=== PATIENT | male | born 1965 | race Caucasian/White ===

== ENCOUNTER → 2022-04-18 | Outpatient (CLI) | payer BC, SELFPAY ==
--- NOTE | 2022-04-18 13:52 | VDLE_ITS ---
Reason For Study: Thrombophlebitis RIGHT LEFT GSV is normal. CFV is compressible, spontaneous, phasic, CFV is compressible, spontaneous, phasic, competent, and demonstrates normal competent and demonstrates normal augmentation. augmentation. FV is compressible, spontaneous, phasic, competent and demonstrates normal augmentation. POP V is compressible, spontaneous, phasic, competent and demonstrates normal augmentation. T/P Trunk is compressible. PTV is compressible. RT PerV is compressible. Rt Varicose Veins of the proximal and mid thigh - Non compressible and dilated with echogenic filling noted. Procedure This is a venous duplex using B-mode, color flow and spectral Doppler. Exam performed in department. The exam was diagnostic. A preliminary report was called to patient's PCP John Rios and faxed to ordering [employer] Heath Salas. VL/Venous Duplex US, Unilateral Interpretation Summary There is no evidence of right lower extremity deep vein thrombosis. Right great saphenous vein appears patent and compressible segmentally. Superficial thrombophlebitis right proximal mid thigh varicose veins Normal flow patterns left common femoral vein Ordering Physician: HEATH SALAS Referring Physician: John Rios M.D. Performed By: Andre Henriquez RVT
== END | disposition home or self-care (01) ==
LOC: CVS 13:50
DX: I80.201 Phlebitis and thrombophlebitis of unspecified deep vessels of right lower extremity (principal)
CPT/HCPCS: 93971

== ENCOUNTER → 2022-08-14 | Outpatient (CLI) | payer BC, SELFPAY ==
--- NOTE | 2022-08-14 07:19 | CT_ITS ---
PROCEDURE: CT RIGHT KNEE WITHOUT CONTRAST REASON FOR EXAM: Male, 57 years old. Preoperative planning for the [employer] knee surgery. Knee pain. TECHNIQUE: Transaxial CT of the hip, knee and ankle were obtained. Coronal and sagittal reconstruction images of the knee were provided. Individualized dose optimization techniques were used for this CT. COMPARISON: None. FINDINGS: Standard protocol for the preoperative planning for the [employer] robotic knee surgery was performed. Mild arthrosis of the right hip, mild tricompartmental arthrosis of the right knee and mild arthrosis of the tibiotalar joint. CT/Extremity Lower without Contra IMPRESSION: Preoperative [employer] knee surgical CT evaluation with findings as described above. Electronically Signed: Isaias Arguello, at 13:28 EST ,
== END | disposition home or self-care (01) ==
PROVIDERS: PCP Internal Medicine; Referring Provider Specialist; Visit Provider Specialist
DX: M21.161 Varus deformity, not elsewhere classified, right knee (principal)
CPT/HCPCS: 73700

== ENCOUNTER → 2022-11-14 | Outpatient (CLI) | payer BC, SELFPAY ==
--- NOTE | 2022-11-14 10:04 | VDLE_ITS ---
Reason For Study: LEG PAIN RIGHT LEFT GSV is normal. CFV is compressible, spontaneous, phasic, CFV is compressible, spontaneous, phasic, competent, and demonstrates normal competent and demonstrates normal augmentation. augmentation. FV is compressible, spontaneous, phasic, competent and demonstrates normal augmentation. POP V is compressible, spontaneous, phasic, competent and demonstrates normal augmentation. T/P Trunk is compressible. PTV is compressible. RT PerV is compressible. Procedure This is a venous duplex using B-mode, color flow and spectral Doppler. Exam performed in department. The exam was diagnostic. A preliminary report was called and/or faxed to Dr. Stahl / Brnadi Jimenes. VL/Venous Duplex US, Unilateral Interpretation Summary Deep veins of the right lower extremity are patent and compressible segmentally . There is no evidence of right lower extremity deep vein thrombosis. The right great sapheno us vein appears patent and compressible segmentally. Ordering Physician: Lg Stahl Referring Physician: John Rios M.D. Performed By: Andre Henriquez RVT
== END | disposition home or self-care (01) ==
LOC: CVS 09:58
PROVIDERS: PCP Internal Medicine; Referring Provider Specialist; Visit Provider Specialist
DX: M79.661 Pain in right lower leg (principal); Z96.651 Presence of right artificial knee joint
CPT/HCPCS: 93971

== ENCOUNTER → 2023-06-04 | Outpatient (CLI) | payer BC, SELFPAY ==
--- NOTE | 2023-06-04 07:56 | CT_ITS ---
CT LEFT LOWER EXTREMITY WITH 3-D IMAGING CLINICAL INDICATION: Left knee varus deformity. Presurgical - [facility] protocol. TECHNIQUE: Axial CT images of the left lower extremity (including left hip, left knee, and left ankle) was performed without IV contrast material, as per [facility] protocol. Coronal and sagittal reformats were provided. RADIATION DOSAGE (If Supplied By Facility): CTDIvol = ( 18.76 ) mGy, DLP = ( 1270.02 ) mGycm COMPARISON: None. FINDINGS: Bones: There is small subchondral cyst formation in the superolateral aspect of the left acetabulum, compatible with mild degenerative arthrosis of the left hip joint. 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 There is tricompartment degenerative arthrosis of the left knee with joint space narrowing and marginal osteophyte formation, most severe in the medial femorotibial compartment. Normal left ankle. Osseous structures are intact without evidence of fracture or dislocation. No lytic or blastic osseous masses. Soft Tissues: . There is a small to moderate left knee joint effusion. The deep soft tissue structures are otherwise unremarkable. The superficial soft tissues are unremarkable without evidence of edema, hematoma, or foreign body. CT/Extremity Lower without Contra IMPRESSION: Tricompartment degenerative arthrosis of the left knee, most severe in the medial femorotibial compartment. No acute fracture. Electronically Signed: Hakan Singh MD at 8:15 EST ,
== END | disposition home or self-care (01) ==
LOC: CT 07:51
PROVIDERS: PCP Internal Medicine; Referring Provider Specialist; Visit Provider Specialist
DX: Z01.810 Encounter for preprocedural cardiovascular examination (principal); M21.162 Varus deformity, not elsewhere classified, left knee
CPT/HCPCS: 73700

== ENCOUNTER → 2023-07-18 | Outpatient (CLI) | payer BC, SELFPAY ==
--- OUTSIDE RECORDS SUMMARY | 2023-07-18 12:06 | XMS RPT_ITS | CCD ---
Author Name Unknown Address [address] [place] [address] Organization [facility] Care Team Providers Care Mandarin Tutor Name Role Phone John Sutton MD Primary Care Provider [phone] JOHN SUTTON Primary Care Unavailable JOHN SUTTON Attending Unavailable JOHN SUTTON Primary Care Unavailable JOHN SUTTON Referring Unavailable JOHN SUTTON Primary Care Unavailable JOHN SUTTON Referring Unavailable JOHN SUTTON Primary Care Unavailable JOHN SUTTON Attending Unavailable Medications Current Medications Medication Drug Class(es) Dates Sig (Normalized) Sig (Original) polyethylene glycol 3350 181549 mg / potassium chloride 2980 mg / sodium bicarbonate 6720 mg / sodium chloride 5840 mg / sodium sulfate 78012 mg powder for oral solution (2 sources) Osmotic Laxative Start: 01-04-2022 End: 01-04-2022 peg 3350-electrolytes (COLYTE) 240-22.72-6.72 -5.84 gram solution Indications: Special screening for malignant neoplasms, colon Take 4,000 mL by mouth one time only for 1 dose. 4000 mL 0 01/04/2022 01/04/2022 Active Completed/Discontinued Medications Medication Drug Class(es) Dates Sig (Normalized) Sig (Original) cholecalciferol 0.025 mg oral capsule (4 sources) Vitamin D Start: 08-15-2022 take 1 capsule by mouth once daily Cholecalciferol, Vitamin D3, 25 mcg (1,000 unit) cap Take 1 capsule by mouth once daily. 0 08/15/2022 Active Problems Problem Classification Problem Date Documented Date Episodic/Chronic Immunizations and screening for infectious disease (8 sources) Patient encounter status; Translations: [Encounter for screening for human immunodeficiency virus [HIV]] Episodic Osteoarthritis (12 sources) Bilateral arthritis of knees; Translations: [Bilateral primary osteoarthritis of knee] Onset: 01-04-2022 01-04-2022 Chronic Results Test Name Value Interpretation Reference Range Facil ity Vital Signs Date Time Vital Sign Value Performing Clinician Marian marie 05-11-2023 14:48-0400 Body temperature 98.29 [degF] John Sutton MD Work Phone: [facility] 05-11-2023 14:48-0400 Body weight 104.01 kg John Sutton MD Work Phone: [facility] 05-11-2023 14:48-0400 Diastolic blood pressure 84 mm[Hg] John Sutton MD Work Phone: [facility] 05-11-2023 14:48-0400 Heart rate 60 /min John Sutton MD Work Phone: [facility] 05-11-2023 14:48-0400 Respiratory rate 16 /min John Sutton MD Work Phone: [facility] 05-11-2023 14:48-0400 SaO2% (BldA) [Mass fraction] 96 % John Sutton MD Work Phone: [facility] 05-11-2023 14:48-0400 Systolic blood pressure 126 mm[Hg] John Sutton MD Work Phone: [facility] 08-15-2022 11:00-0500 Body temperature 97.3 [degF] John Sutton MD Work Phone: [facility] 08-15-2022 11:00-0500 Body weight 102.06 kg John Sutton MD Work Phone: [facility] 08-15-2022 11:00-0500 Diastolic blood pressure 80 mm[Hg] John Sutton MD Work Phone: [facility] 08-15-2022 11:00-0500 Heart rate 60 /min John Sutton MD Work Phone: [facility] 08-15-2022 11:00-0500 Systolic blood pressure 132 mm[Hg] John Sutton MD Work Phone: [facility] 03-03-2022 12:56-0400 Diastolic blood pressure 71 mm[Hg] Ale Jamison MD Work Phone: [facility] 03-03-2022 12:56-0400 Heart rate 57 /min Ale Jamison MD Work Phone: [facility] 03-03-2022 12:56-0400 Respiratory rate 16 /min Ale Jamison MD Work Phone: [facility] 03-03-2022 12:56-0400 SaO2% (BldA) [Mass fraction] 99 % Ale Jamison MD Work Phone: [facility] 03-03-2022 12:56-0400 Systolic blood pressure 122 mm[Hg] Ale Jamison MD Work Phone: [facility] 03-03-2022 11:40-0400 Body temperature 98.49 [degF] Ale Jamison MD Work Phone: [facility] 01-04-2022 10:30-0400 Body height 180.3 cm John Sutton MD Work Phone: [facility] 01-04-2022 10:30-0400 Body temperature 97.39 [degF] John Sutton MD Work Phone: [facility] 01-04-2022 10:30-0400 Body weight 94.8 kg John Sutton MD Work Phone: [facility] 01-04-2022 10:30-0400 Diastolic blood pressure 80 mm[Hg] John Sutton MD Work Phone: [facility] 01-04-2022 10:30-0400 Heart rate 68 /min John Sutton MD Work Phone: [facility] 01-04-2022 10:30-0400 Respiratory rate 12 /min John Sutton MD Work Phone: [facility] 01-04-2022 10:30-0400 Systolic blood pressure 128 mm[Hg] John Sutton MD Work Phone: [facility] Encounters Encounter Date Encounter Type Care Provider Facility Start: 05-11-2023 End: 05-11-2023 ambulatory JOHN SUTTON Facility:[facility] Start: 05-11-2023 End: 05-11-2023 Patient encounter procedure John Sutton MD Work Phone: Internal [facility] Procedures Date Procedure Procedure Detail Performing Clinician Start: 05-11-2023 Ecg routine ecg w/le ast 12 lds i&r only [facility] Provider Start: 05-11-2023 Nobl COVI D-19 VACCINE ( SEASON) AGE 12+ YR John Sutton MD Work Phone: Start: 03-03-2022 Colonoscopy flx dx w /collj spec when pfrmd John Sutton MD Work Phone: Start: 03-03-2022 Colonoscopy Ale Jamison MD Work Phone: Start: 01-04-[address] [facility] assessment Nurse Wstr Work Phone: Start: 01-04-2022 Lipid 1996 panel - S milena or Plasma John Sutton MD Work Phone: Start: 10-13-2020 Lipid panel [facility] Provid er Start: 04-25-2019 Lipid panel [facility] Provid er Start: 10-29-2013 Lipid panel [facility] Provid er Start: 11-14-2012 Lipid panel [facility] Provid er Start: 05-26-2012 Lipid panel [facility] Provid er Start: 05-16-2011 Lipid panel [facility] Provid er Plan of Treatment Date Care Activity Detail Author Start: 05-11-2033 Urine microalbumin profile DTaP,Tdap,Td Vaccine (3 - Td or Tdap) [facility] Start: 03-03-2027 Colonoscopy COLONOSCOPY [facility] Start: 03-03-2027 COLORECTAL CANCER SCREENING COLORECTAL CANCER SCREENING [facility] Start: 01-04-2027 Lipid 1996 panel - Serum or Plasma Lipid Screening [facility] Start: 01-04-2027 LIPID SCREEN LIPID SCREEN [facility] Start: 01-04-2027 PROSTATE CANCER SCREENING DISCUSSION PROSTATE CANCER SCREENING DISCUSSION [facility] Start: 10-13-2025 LIPID SCREEN LIPID SCREEN [facility] Start: 08-15-2025 DIABETES SCREEN DIABETES SCREEN [facility] Start: 08-15-2025 Diabetes Screening Diabetes Screening [facility] Start: 01-04-2025 DIABETES SCREEN DIABETES SCREEN [facility] Start: 03-09-2023 Influenza vaccination Influ[facility] (#[facility] Start: 03-03-2023 Colonoscopy COLONOSCOPY [facility] Start: 03-03-2023 COLORECTAL CANCER SCREENING COLORECTAL CANCER SCREENING [facility] Start: 02-11-2023 Urine microalbumin profile DTAP,TDAP,TD (2 - Td or Tdap) [facility] Start: 01-04-2023 Adult depression screening assessment DEPRESSION SCREENING [facility] Start: 03-09-2022 Influenza vaccination INFLUENZA (#1) [facility] Start: 01-04-2022 End: 03-06-2022 CBC panel - Blood by Automated count [facility] Work Phone: Immunizations Immunization Date Immunization Notes Care Provider Fa cili 05-11-2023 COVID-19 vaccine, ag e 12+ yr, season (Nobl) John Sutton MD Work Phone: [facility] Work Phone: 05-11-2023 tetanus toxoid, redu willy diphtheria toxoid, and acellular pertussis vaccine, adsorbed John Sutton MD Work Phone: [facility] Work Phone: 04-04-2022 influenza, injectabl e, quadrivalent, preservative free John Sutton MD Work Phone: [facility] Work Phone: 04-04-2022 influenza virus vaccine, unspecified formulation John Sutton MD Work Phone: [facility] 06-16-2021 COVID-19 vaccine, booster dose (MODERNA) Nurse Wstr Work Phone: [facility] Work Phone: 03-29-2021 influenza, injectabl e, quadrivalent, preservative free Nurse Wstr Work Phone: [facility] Work Phone: 10-21-2020 COVID-19 vaccine, fu ll dose (MODERNA) Nurse Wstr Work Phone: [facility] Work Phone: 09-23-2020 COVID-19 vaccine, fu ll dose (MODERNA) Nurse Wstr Work Phone: [facility] Work Phone: 03-24-2020 influenza, injectabl e, quadrivalent, preservative free Nurse Wstr Work Phone: [facility] Work Phone: 04-29-2018 Influenza, injectabl e, Madin Muna Canine Kidney, preservative free, quadrivalent Nurse Wstr Work Phone: [facility] Work Phone: 09-15-2015 hepatitis B vaccine, adult dosage Nurse Wstr Work Phone: [facility] Work Phone: 04-15-2015 influenza, injectabl e, quadrivalent, preservative free Nurse Wstr Work Phone: [facility] Work Phone: 04-13-2014 influenza, seasonal, injectable, preservative free Nurse Wstr Work Phone: [facility] Work Phone: 03-31-2013 influenza, seasonal, injectable, preservative free Nurse Wstr Work Phone: [facility] Work Phone: 03-17-2013 hepatitis B vaccine, adult dosage Nurse Wstr Work Phone: [facility] Work Phone: 02-11-2013 hepatitis B vaccine, adult dosage Nurse Wstr Work Phone: [facility] Work Phone: 02-11-2013 tetanus toxoid, redu willy diphtheria toxoid, and acellular pertussis vaccine, adsorbed Nurse Wstr Work Phone: [facility] Work Phone: 06-25-2008 tetanus and diphther ia toxoids, adsorbed, preservative free, for adult use (2 Lf of tetanus toxoid and 2 Lf of diphtheria toxoid) Nurse Wstr Work Phone: [facility] Work Phone: Payers Date Payer Category Payer Unknown ASHA TOUSSAINT PPO [id number] 2020-Present [phone] [address] [place] [id number] PPO [id number] 2020 Unknown ASHA CARLISLE ACCE SS PPO [id number] 2020-Present [phone] [address] [place] [address] PPO [id number] 2020 Unknown [id number] Social History Date Type Detail Facility Start: 06-06-2012 End: 03-03-2022 Tobacco smoking status NHIS Never smoked tobacco [facility] Start: 06-06-2012 Tobacco use and exposure User of smokeless tobacco [facility] End: 11-22-2007 History of tobacco use Chews Tobacco [facility] Start: 01-04-2022 End: 05-11-2023 Alcohol intake Current drinker of alcohol (finding) [facility] Start: 01-04-2022 End: 05-11-2023 Alcohol intake [facility] Work Phone: Start: 01-04-2022 History SDOH Alcohol Frequency 5 [facility] Start: 01-04-2022 History SDOH Alcohol Std Drinks 1 [facility] Start: 01-04-2022 History SDOH Alcohol Binge 2 [facility] Start: 01-04-2022 History SDOH Physica l Activity DPW 7 [facility] Start: 01-04-2022 History SDOH Physica l Activity MPS 12 [facility] Start: 1965 Sex Assigned At Not on file [facility] Start: 12-25-2021 End: 03-03-2022 Exposure to SARS-CoV-2 (event) Not sure [facility] Work Phone: Start: 03-03-2022 Tobacco use and exposure Constantin atkins smokeless tobacco user [facility] Start: 03-03-2022 History SDOH Alcohol Comment weekends [facility] Start: 01-04-2022 End: 05-11-2023 Alcohol Use Disorder Identification Test - Consumption [AUDIT-C] [facility] Work Phone: How often to you hav e a drink containing alcohol? 4 or more times a week [facility] Work Phone: How many standard dr inks containing alcohol do you have on a typical day? 1 or 2 [facility] Work Phone: How often do you hav e 6 or more drinks on 1 occasion? Less than monthly [facility] Work Phone: Adult Depression Scr eening Assessment 0 [facility] Work Phone: Clinical Notes 08-27-2008 to 05-11-2023 John Sutton MD - 05/11/2023 2:55 PM EDTTelephone Encounter - Nader Meza RN - 08/30/2022 8:31 AM ESTTelephone Encounter - Kera Vazquez LPN - 08/21/2022 4:27 PM ESTPatient Instructions Note Date & Type Note Facility 05-11-2023 Note HNO ID: [id number] Author: John Sutton MD Service: ? Author Type: Physician Type: Progress Notes Filed: 05/11/2023 3:58 PM Note Text: This note was created using NoteWriter. Subjective Consultation requested by Dr. Stahl for an opinion regarding preoperative examination. My final recommendations will be communicated back to the requesting physician by way of shared Medical record or facsimile to requesting physician. Miesha Morales is a 58 year old male. He was scheduled for left total knee, originally for June 21 but moved to July. He was in good health. We reviewed his past negative medical history, and his surgery 9 months ago was uncomplicated. Review of Systems Constitutional: Negative for fatigue, fever and unexpected weight change. Respiratory: Negative for shortness of breath. Cardiovascular: Negative for chest pain, palpitations and leg swelling. Gastrointestinal: Negative for diarrhea. Genitourinary: Negative for difficulty urinating and dysuria. Skin: Negative for rash and wound. Neurological: Negative. ACTIVE PROBLEM LIST Arthritis of Both Knees PAST MEDICAL HISTORY Diagnosis Date Arthritis of both knees 01/04/2022 Dr. Stahl COVID-19 06/2020 Diverticulosis of colon 03/03/2022 Essential hypertension 05/2008 Obesity due to excess calories without serious comorbidity 05/2008 PAST SURGICAL HISTORY Procedure Laterality Date ARTHROSCOPY KNEE DIAGNOSTIC W/WO SYNOVIAL BX SPX Right 1985 age 20, Right knee COLONOSCOPY 03/03/2022 repeat in 5 years MANIPULATION KNEE JOINT UNDER GENERAL ANESTHESIA Right 11/03/2022 TOTAL KNEE REPLACEMENT Right 08/31/2022 Social History Tobacco Use Smoking status: Never Smokeless tobacco: Former Types: Chew Quit date: 11/22/2007 Substance Use Topics Alcohol use: Yes Alcohol/week: 8.0 standard drinks of alcohol Types: 8 Cans of Beer (12oz) per week Comment: weekends Drug use: No ALLERGIES No Known Allergies Current Outpatient Medications Medication Sig Cholecalciferol, Vitamin D3, 25 mcg (1,000 unit) cap Take 1 capsule by mouth once daily. (Patient not taking: Reported on 05/11/2023) No current facility-administered medications for this visit. Objective BP 126/84 Pulse 60 Temp 36.8 ?C (98.3 ?F) Resp 16 Wt 104 kg (229 lb 4.8 oz) SpO2 96% BMI 31.98 kg/m? Physical Exam Constitutional: Appearance: Normal appearance. HENT: Head: Normocephalic. Eyes: General: No scleral icterus. Conjunctiva/sclera: Conjunctivae normal. Cardiovascular: Rate and Rhythm: Normal rate and regular rhythm. Heart sounds: No murmur heard. No gallop. Pulmonary: Breath sounds: Normal breath sounds. Abdominal: Palpations: Abdomen is soft. Tenderness: There is no abdominal tenderness. Hernia: No hernia is present. Musculoskeletal: General: No tenderness. Right lower leg: No edema. Left lower leg: No edema. Skin: Findings: No rash. Neurological: Mental Status: He is alert. Gait: Gait normal. EKG RESULTS: sinus bradycardia and otherwise normal. Assessment and Plan 1. Preoperative examination - ICD9: V72.84, ICD10: Z01.818 (primary diagnosis) Patient at below average risk for all NSQIP outcomes. Proceed. - ECG COMPLETE 2. Arthritis of both knees - ICD9: 716.96, ICD10: M17.0 Left total knee scheduled. 3. Need for COVID-19 vaccine - ICD9: V04.89, ICD10: Z23 - PFIZER-BIONTECH COVID-19 VACCINE ( SEASON) AGE 12+ YR 4. Need for vaccination - ICD9: V05.9, ICD10: Z23 - TDAP VACCINE, AGE 7+ YR (ADACEL, BOOSTRIX) John Sutton MD [facility] 05-11-2023 History of Presen t illness Narrative This note was created using [employer]. Subjective Consultation requested by Dr. Stahl for an opinion regarding preoperative examination. My final recommendations will be communicated back to the requesting physician by way of shared Medical record or facsimile to requesting physician. Miesha Morales is a 58 year old male. He was scheduled for left total knee, originally for June 21 but moved to July. He was in good health. We reviewed his past negative medical history, and his surgery 9 months ago was uncomplicated. Review of Systems Constitutional: Negative for fatigue, fever and unexpected weight change. Respiratory: Negative for shortness of breath. Cardiovascular: Negative for chest pain, palpitations and leg swelling. Gastrointestinal: Negative for diarrhea. Genitourinary: Negative for difficulty urinating and dysuria. Skin: Negative for rash and wound. Neurological: Negative. ACTIVE PROBLEM LIST Arthritis of Both Knees PAST MEDICAL HISTORY Diagnosis Date Arthritis of both knees 01/04/2022 Dr. Stahl COVID-19 06/2020 Diverticulosis of colon 03/03/2022 Essential hypertension 05/2008 Obesity due to excess calories without serious comorbidity 05/2008 PAST SURGICAL HISTORY Procedure Laterality Date ARTHROSCOPY KNEE DIAGNOSTIC W/WO SYNOVIAL BX SPX Right 1984 age 20, Right knee COLONOSCOPY 03/03/2022 repeat in 5 years MANIPULATION KNEE JOINT UNDER GENERAL ANESTHESIA Right 11/03/2022 TOTAL KNEE REPLACEMENT Right 08/31/2022 Social History Tobacco Use Smoking status: Never Smokeless tobacco: Former Types: Chew Quit date: 11/22/2007 Substance Use Topics Alcohol use: Yes Alcohol/week: 8.0 standard drinks of alcohol Types: 8 Cans of Beer (12oz) per week Comment: weekends Drug use: No ALLERGIES No Known Allergies Current Outpatient Medications Medication Sig Cholecalciferol, Vitamin D3, 25 mcg (1,000 unit) cap Take 1 capsule by mouth once daily. (Patient not taking: Reported on 05/11/2023) No current facility-administered medications for this visit. Objective BP 126/84 Pulse 60 Temp 36.8 C (98.3 F) Resp 16 Wt 104 kg (229 lb 4.8 oz) SpO2 96% BMI 31.98 kg/m Physical Exam Constitutional: Appearance: Normal appearance. HENT: Head: Normocephalic. Eyes: General: No scleral icterus. Conjunctiva/sclera: Conjunctivae normal. Cardiovascular: Rate and Rhythm: Normal rate and regular rhythm. Heart sounds: No murmur heard. No gallop. Pulmonary: Breath sounds: Normal breath sounds. Abdominal: Palpations: Abdomen is soft. Tenderness: There is no abdominal tenderness. Hernia: No hernia is present. Musculoskeletal: General: No tenderness. Right lower leg: No edema. Left lower leg: No edema. Skin: Findings: No rash. Neurological: Mental Status: He is alert. Gait: Gait normal. EKG RESULTS: sinus bradycardia and otherwise normal. Assessment and Plan 1. Preoperative examination - ICD9: V72.84, ICD10: Z01.818 (primary diagnosis) Patient at below average risk for all NSQIP outcomes. Proceed. - ECG COMPLETE 2. Arthritis of both knees - ICD9: 716.96, ICD10: M17.0 Left total knee scheduled. 3. Need for COVID-19 vaccine - ICD9: V04.89, ICD10: Z23 - PFIZER-BIONTECH COVID-19 VACCINE (2022- SEASON) AGE 12+ YR 4. Need for vaccination - ICD9: V05.9, ICD10: Z23 - TDAP VACCINE, AGE 7+ YR (ADACEL, BOOSTRIX) John Sutton MD documented in this encounter [facility] 08-30-2022 Miscellaneous Notes Faxed recent lab results to [facility], per request. documented in this encounter [facility] 08-21-2022 Miscellaneous Notes Results faxed to [facility]. Kera Vazquez LPN ----- Message from John Sutton MD sent at 08/20/2022 4:01 PM EST ----- Okay. Fax to [facility] as part of preoperative exam. documented in this encounter [facility] 08-15-2022 Note HNO ID: [id number] Author: John Sutton MD Service: ? Author Type: Physician Type: Progress Notes Filed: 09/10/2022 1:50 AM Note Text: This note was created using [employer]. Subjective Consultation requested by Dr. Stahl for an opinion regarding preoperative evaluation. My final recommendations will be communicated back to the requesting physician by way of facsimile. Miesha Morales is a 57 year old male, scheduled for right total knee 08/31/22. He had no history of heart disease, stroke, blood clots, bleeding tendencies or adverse effects from anesthesia. He was not on any prescription medications at this time. PAST MEDICAL HISTORY Diagnosis Date Arthritis of both knees 01/04/2022 Dr. Stahl COVID-19 06/2020 Diverticulosis of colon 03/03/2022 Essential hypertension 05/2008 Obesity due to excess calories without serious comorbidity 05/2008 PAST SURGICAL HISTORY Procedure Laterality Date ARTHROSCOPY KNEE DIAGNOSTIC W/WO SYNOVIAL BX SPX Right 1985 age 20, Right knee COLONOSCOPY 03/03/2022 repeat in 5 years FAMILY HISTORY Problem Relation Age of Onset Lymphoma Mother 80 Ischemic Heart Disease Mother Stroke Father Prostate Cancer Father Diabetes Sister insipidus No Known Problems Brother Social History Tobacco Use Smoking status: Never Smokeless tobacco: Former Types: Chew Quit date: 11/22/2007 Substance Use Topics Alcohol use: Yes Alcohol/week: 8.0 standard drinks Types: 8 Cans of Beer (12oz) per week Comment: weekends Drug use: No ALLERGIES No Known Allergies Current Outpatient Medications Medication Sig Cholecalciferol, Vitamin D3, 25 mcg (1,000 unit) cap Take 1 capsule by mouth once daily. No current facility-administered medications for this visit. Review of Systems Constitutional: Negative for chills, fatigue and fever. HENT: Negative. Respiratory: Negative for cough, chest tightness and shortness of breath. Cardiovascular: Negative for chest pain, palpitations and leg swelling. Gastrointestinal: Negative for constipation, diarrhea, nausea and vomiting. Genitourinary: Negative for difficulty urinating and dysuria. Neurological: Negative for dizziness and headaches. Psychiatric/Behavioral: Negative. Negative for dysphoric mood. Objective BP 132/80 (BP Position: Sitting) Pulse 60 Temp 36.3 ?C (97.3 ?F) Wt 102.1 kg (225 lb) BMI 31.38 kg/m? Physical Exam Constitutional: General: He is not in acute distress. Appearance: He is not ill-appearing. HENT: Head: Normocephalic. Eyes: Extraocular Movements: Extraocular movements intact. Neck: Vascular: No carotid bruit. Cardiovascular: Rate and Rhythm: Normal rate and regular rhythm. Heart sounds: No murmur heard. No gallop. Pulmonary: Effort: Pulmonary effort is normal. Breath sounds: Normal breath sounds. Abdominal: Palpations: Abdomen is soft. Tenderness: There is no abdominal tenderness. Musculoskeletal: Cervical back: No tenderness. Right lower leg: No edema. Left lower leg: No edema. Lymphadenopathy: Cervical: No cervical adenopathy. Neurological: General: No focal deficit present. Mental Status: He is alert. Gait: Gait normal. Psychiatric: Mood and Affect: Mood normal. Behavior: Behavior normal. EKG RESULTS: sinus bradycardia Labs (CBC, CMP) ordered. Assessment and Plan 1. Preoperative examination - ICD9: V72.84, ICD10: Z01.818 (primary diagnosis) - ECG COMPLETE - Proceed. No further testing needed. Standard DVT prophylaxis. - Below average risk for all NSQIP outcomes. 2. Arthritis of both knees - ICD9: 716.96, ICD10: M17.0 For right TKR. John Sutton MD September 10, 2022: Addendum: Depression screening completed. John Sutton MD [facility] 08-15-2022 History of Presen t illness Narrative This note was created using [facility]. Subjective Consultation requested by Dr. Stahl for an opinion regarding preoperative evaluation. My final recommendations will be communicated back to the requesting physician by way of facsimile. Miesha Morales is a 57 year old male, scheduled for right total knee 08/31/22. He had no history of heart disease, stroke, blood clots, bleeding tendencies or adverse effects from anesthesia. He was not on any prescription medications at this time. PAST MEDICAL HISTORY Diagnosis Date Arthritis of both knees 01/04/2022 Dr. Stahl COVID-19 06/2020 Diverticulosis of colon 03/03/2022 Essential hypertension 05/2008 Obesity due to excess calories without serious comorbidity 05/2008 PAST SURGICAL HISTORY Procedure Laterality Date ARTHROSCOPY KNEE DIAGNOSTIC W/WO SYNOVIAL BX SPX Right 1985 age 20, Right knee COLONOSCOPY 03/03/2022 repeat in 5 years FAMILY HISTORY Problem Relation Age of Onset Lymphoma Mother 80 Ischemic Heart Disease Mother Stroke Father Prostate Cancer Father Diabetes Sister insipidus No Known Problems Brother Social History Tobacco Use Smoking status: Never Smokeless tobacco: Former Types: Chew Quit date: 11/22/2007 Substance Use Topics Alcohol use: Yes Alcohol/week: 8.0 standard drinks Types: 8 Cans of Beer (12oz) per week Comment: weekends Drug use: No ALLERGIES No Known Allergies Current Outpatient Medications Medication Sig Cholecalciferol, Vitamin D3, 25 mcg (1,000 unit) cap Take 1 capsule by mouth once daily. No current facility-administered medications for this visit. Review of Systems Constitutional: Negative for chills, fatigue and fever. HENT: Negative. Respiratory: Negative for cough, chest tightness and shortness of breath. Cardiovascular: Negative for chest pain, palpitations and leg swelling. Gastrointestinal: Negative for constipation, diarrhea, nausea and vomiting. Genitourinary: Negative for difficulty urinating and dysuria. Neurological: Negative for dizziness and headaches. Psychiatric/Behavioral: Negative. Negative for dysphoric mood. Objective BP 132/80 (BP Position: Sitting) Pulse 60 Temp 36.3 C (97.3 F) Wt 102.1 kg (225 lb) BMI 31.38 kg/m Physical Exam Constitutional: General: He is not in acute distress. Appearance: He is not ill-appearing. HENT: Head: Normocephalic. Eyes: Extraocular Movements: Extraocular movements intact. Neck: Vascular: No carotid bruit. Cardiovascular: Rate and Rhythm: Normal rate and regular rhythm. Heart sounds: No murmur heard. No gallop. Pulmonary: Effort: Pulmonary effort is normal. Breath sounds: Normal breath sounds. Abdominal: Palpations: Abdomen is soft. Tenderness: There is no abdominal tenderness. Musculoskeletal: Cervical back: No tenderness. Right lower leg: No edema. Left lower leg: No edema. Lymphadenopathy: Cervical: No cervical adenopathy. Neurological: General: No focal deficit present. Mental Status: He is alert. Gait: Gait normal. Psychiatric: Mood and Affect: Mood normal. Behavior: Behavior normal. EKG RESULTS: sinus bradycardia Labs (CBC, CMP) ordered. Assessment and Plan 1. Preoperative examination - ICD9: V72.84, ICD10: Z01.818 (primary diagnosis) - ECG COMPLETE - Proceed. No further testing needed. Standard DVT prophylaxis. - Below average risk for all NSQIP outcomes. 2. Arthritis of both knees - ICD9: 716.96, ICD10: M17.0 For right TKR. John Sutton MD documented in this encounter [facility] 04-20-2022 Miscellaneous Notes Okay. Noted. Called and spoke with patient. Patient will follow up with Anastasia Cintron CNP for doppler results. Patient reports that he plans/hopes to keep Dr. Sutton as his PCP but he works at [employer] is on-site for urgent needs and it was convenient for him to be seen at the time for this. Deb Saunders RN 1) Please advise patient to call ordering provider. 2) Verify with patient who his primary care is and update [facility] accordingly. Andre Henriquez with [facility] calls to let provider know that Anastasia Cintron BAR MANAGER with [employer] ordered a stat doppler of right leg for soreness with redness and swelling. Findings are Negative for DVT. Positive for SVT of right side and varicose veins of paroxymal thighs of right side as well. Information to be forwarded to Anastasia Cintron but wanted provider to be aware as well since unable to reach and testing was ordered stat. Deb Saunders RN documented in this encounter [facility] 03-03-2022 Nurse Note Arrived in Phase II via cart left lateral position, eyes open, alert to self and procedure. Denies pain, nausea. Abdomen soft and non distended. Skin warm and dry, respirations regular and unlabored. Resting comfortably, but unable to fall asleep, will start snack immediately. documented in this encounter [facility] 03-03-2022 History and physical note UPDATED PROCEDURAL SEDATION HISTORY AND PHYSICAL EXAMINATION SERVICE DATE: 03/03/2022 SERVICE TIME: 11:49 PHYSICAL EXAM MUST BE COMPLETED ON ADMISSION PROCEDURE: colonoscopy, possible biopsies Procedure Indications: screening for colon cancer The History and Physical (completed in the past 30 days) has been reviewed and the patient has been examined. The contents accurately reflect the patient's condition with the following additions or revisions since the H&P was completed. ASA Class: ASA Class:: Patient with mild systemic disease Examination indicates no changes. AIRWAY: Airway Visualization of Uvula: Yes Mouth opening greater than 2 fingerbreadths: Yes Neck Full Range of Motion: Yes LUNGS: Lungs clear to auscultation CARDIAC: Regular rhythm,Regular rate Provisional Diagnosis/Treatment Plan: colonoscopy, possible biopsies SEDATION GOAL: Moderate This H&P can be found in the Electronic Medical Record . SIGNATURE: Ale Jamison MD PATIENT NAME: Miesha Morales DATE: March 03, 2022 TIME: 11:49 AM Source Note - Ale Jamison MD - 03/03/2022 12:00 PM EDT HISTORY AND PHYSICAL Miesha Morales 1965 REFERRING PHYSICIAN: John Sutton MD CHIEF COMPLAINT: No chief complaint on file. HPI: The patient is a 56 year old male presents for screening for colon cancer via colonoscopy The patient denies blood in stools, denies abdominal pain, and denies changes in bowel habits. The patient notes no colon cancer in immediate family. The patient has not had previous colonoscopy. PAST MEDICAL HISTORY Diagnosis Date Arthritis of both knees 01/04/2022 Dr. Stahl COVID-19 06/2020 Essential hypertension 05/2008 Obesity due to excess calories without serious comorbidity 05/2008 PAST SURGICAL HISTORY Procedure Laterality Date ARTHROSCOPY KNEE DIAGNOSTIC W/WO SYNOVIAL BX SPX Right 1985 age 20, Right knee MEDICATIONS: denies ALLERGIES: Patient has no known allergies. PERSONAL HISTORY: Social History Tobacco Use Smoking status: Never Smokeless tobacco: Current Types: Chew Last attempt to quit: 11/22/2007 Substance Use Topics Alcohol use: Yes Alcohol/week: 20.0 standard drinks Types: 8 Cans of Beer (12oz) per week Drug use: No FAMILY HISTORY: FAMILY HISTORY Problem Relation Age of Onset Lymphoma Mother 80 Ischemic Heart Disease Mother Stroke Father Prostate Cancer Father Diabetes Sister insipidus No Known Problems Brother REVIEW OF SYSTEMS: General - denies fevers HEENT - denies trauma/infections Resp - denies coughing up blood, denies breathing difficulties Cardiac - denies chest pain GI - denies abdominal pain, denies blood in stools, denies vomiting up of blood - denies blood in urine Endocrine - denies diabetes Psych - denies hallucinations Physical examination: Vital signs in chart, reviewed and noted by me General - WD/WN M in no apparent distress, alert and oriented Head - Normocephalic. EOM intact with sclera clear. Mouth with mucus membranes moist. Neck - supple with no jugular venous distention noted. Trachea is midline. Lungs - clear to auscultation. Normal breath sounds. No rales/rhonchi/wheezing noted. Heart - normal heart sounds. No rubs/clicks/murmurs noted. Regular rate. Abdomen - soft and benign. Extremities - no pitting edema noted. Skin - Normal skin integrity. Neurological - non focal Psych - calm and appropriate Impression: screening for colon cancer Discussion/Plan/Recommendations: I have discussed the above with the patient. I have offered colonoscopy , possible biopsies I have explained the procedure to the patient. I have counseled the patient as to the risks of the procedure, including but not limited to: infection, bleeding, injury to any intrabdominal organs such as liver/spleen, perforation of the GI tract, inability to complete the procedure, complications of anesthesia, etc. - the patient understands. The patient wishes to proceed. I have answered all questions to the patient s satisfaction and the patient has no further questions. Ale Jamison MD HISTORY AND PHYSICAL Miesha Morales 1965 REFERRING PHYSICIAN: John Sutton MD CHIEF COMPLAINT: No chief complaint on file. HPI: The patient is a 56 year old male presents for screening for colon cancer via colonoscopy The patient denies blood in stools, denies abdominal pain, and denies changes in bowel habits. The patient notes no colon cancer in immediate family. The patient has not had previous colonoscopy. PAST MEDICAL HISTORY Diagnosis Date Arthritis of both knees 01/04/2022 Dr. Stahl COVID-19 06/2020 Essential hypertension 05/2008 Obesity due to excess calories without serious comorbidity 05/2008 PAST SURGICAL HISTORY Procedure Laterality Date ARTHROSCOPY KNEE DIAGNOSTIC W/WO SYNOVIAL BX SPX Right 1985 age 20, Right knee MEDICATIONS: denies ALLERGIES: Patient has no known allergies. PERSONAL HISTORY: Social History Tobacco Use Smoking status: Never Smokeless tobacco: Current Types: Chew Last attempt to quit: 11/22/2007 Substance Use Topics Alcohol use: Yes Alcohol/week: 20.0 standard drinks Types: 8 Cans of Beer (12oz) per week Drug use: No FAMILY HISTORY: FAMILY HISTORY Problem Relation Age of Onset Lymphoma Mother 80 Ischemic Heart Disease Mother Stroke Father Prostate Cancer Father Diabetes Sister insipidus No Known Problems Brother REVIEW OF SYSTEMS: General - denies fevers HEENT - denies trauma/infections Resp - denies coughing up blood, denies breathing difficulties Cardiac - denies chest pain GI - denies abdominal pain, denies blood in stools, denies vomiting up of blood - denies blood in urine Endocrine - denies diabetes Psych - denies hallucinations Physical examination: Vital signs in chart, reviewed and noted by me General - WD/WN M in no apparent distress, alert and oriented Head - Normocephalic. EOM intact with sclera clear. Mouth with mucus membranes moist. Neck - supple with no jugular venous distention noted. Trachea is midline. Lungs - clear to auscultation. Normal breath sounds. No rales/rhonchi/wheezing noted. Heart - normal heart sounds. No rubs/clicks/murmurs noted. Regular rate. Abdomen - soft and benign. Extremities - no pitting edema noted. Skin - Normal skin integrity. Neurological - non focal Psych - calm and appropriate Impression: screening for colon cancer Discussion/Plan/Recommendations: I have discussed the above with the patient. I have offered colonoscopy , possible biopsies I have explained the procedure to the patient. I have counseled the patient as to the risks of the procedure, including but not limited to: infection, bleeding, injury to any intrabdominal organs such as liver/spleen, perforation of the GI tract, inability to complete the procedure, complications of anesthesia, etc. - the patient understands. The patient wishes to proceed. I have answered all questions to the patient s satisfaction and the patient has no further questions. Ale Jamison MD documented in this encounter [facility] 01-17-2022 Miscellaneous Notes Pt called and is notified of providers results. Pt voices understanding. Kalie Shaw RN Left message to call and speak to nurse for non-urgent results. Kera Vazquez LPN ----- Message from John Sutton MD sent at 01/16/2022 6:29 PM EDT ----- Labs are all within normal limits. documented in this encounter [facility] 01-04-2022 History of Presen t illness Narrative This note was created using [facility]. Subjective Patient presents with: Establish Care: last saw Dr. Jerald Costa here. Physical Miesha Morales is a 56 year old male. He was exercising almost daily and felt well. He sees Dr. Stahl periodically for knee joint injections. He had obesity and hypertension that resolved with lifestyle changes. The history is provided by the patient and medical records. Review of Systems HENT: Negative. Eyes: Negative. Respiratory: Negative. Cardiovascular: Negative. Gastrointestinal: Negative. Genitourinary: Negative. Musculoskeletal: Negative. Skin: Negative. Psychiatric/Behavioral: Negative. PAST MEDICAL HISTORY Diagnosis Date Arthritis of both knees 01/04/2022 Dr. Stahl COVID-19 06/2020 Essential hypertension 05/2008 Obesity due to excess calories without serious comorbidity 05/2008 PAST SURGICAL HISTORY Procedure Laterality Date ARTHROSCOPY KNEE DIAGNOSTIC W/WO SYNOVIAL BX SPX Right age 20 FAMILY HISTORY Problem Relation Age of Onset Lymphoma Mother 80 Ischemic Heart Disease Mother Stroke Father Prostate Cancer Father Diabetes Sister insipidus No Known Problems Brother Immunization History Administered Date(s) Administered COVID-19 vaccine, booster dose (MODERNA) 06/16/2021 COVID-19 vaccine, full dose (MODERNA) 09/23/2020 10/21/2020 10/24/2021 Hepatitis B Adult 02/11/2013 03/17/2013 09/15/2015 Influenza Seasonal Inj Quad Age 6 Mo-64 Yrs Pres Free 04/15/2015 03/24/2020 03/29/2021 Influenza Seasonal Inj Quadrivalent Age 4+ ccII4 and Pres Free 04/29/2018 Influenza Seasonal Trivalent Inj Pres Free 03/31/2013 04/13/2014 TD Adult 06/25/2008 Tdap (Age 7+) 02/11/2013 Social History Tobacco Use Smoking status: Never Smoker Smokeless tobacco: Current User Types: Chew Substance Use Topics Alcohol use: Yes Alcohol/week: 20.0 standard drinks Types: 8 Cans of Beer (12oz) per week Drug use: No ALLERGIES No Known Allergies Current Outpatient Medications Medication Sig peg 3350-electrolytes (COLYTE) 240-22.72-6.72 -5.84 gram solution Take 4,000 mL by mouth one time only for 1 dose. No current facility-administered medications for this visit. Objective BP 128/80 (BP Site: Left Arm, BP Position: Sitting, BP Cuff Size: Large Adult) Pulse 68 Temp 36.3 C (97.4 F) (Temporal Artery) Resp 12 Ht 180.3 cm (5' 11 ) Wt 94.8 kg (209 lb) BMI 29.15 kg/m Physical Exam Constitutional: Appearance: Normal appearance. HENT: Head: Normocephalic. Eyes: Extraocular Movements: Extraocular movements intact. Conjunctiva/sclera: Conjunctivae normal. Cardiovascular: Rate and Rhythm: Normal rate and regular rhythm. Heart sounds: No murmur heard. No gallop. Pulmonary: Effort: Pulmonary effort is normal. Breath sounds: Normal breath sounds. Abdominal: Palpations: Abdomen is soft. There is no mass. Tenderness: There is no abdominal tenderness. Musculoskeletal: General: No swelling or tenderness. Normal range of motion. Cervical back: Neck supple. Right knee: Deformity present. No swelling. No tenderness. Left knee: Deformity present. No swelling. No tenderness. Right lower leg: No edema. Left lower leg: No edema. Comments: Mild varus of both knees. Lymphadenopathy: Cervical: No cervical adenopathy. Skin: Findings: No rash. Neurological: General: No focal deficit present. Mental Status: He is alert. Gait: Gait normal. Psychiatric: Mood and Affect: Mood normal. Assessment and Plan 1. Routine medical exam - ICD9: V70.0, ICD10: Z00.00 (primary diagnosis) - Discussed need for and benefit of weight loss. BMI 29.15 kg/(m^2) - Colorectal cancer screening recommended - agrees to Colonoscopy - Risks/benefits of prostate cancer screening discussed. screening PSA ordered - Depression screening tool completed and reviewed with patient. Based on score and interview, patient is not at risk for depression and recommended no further intervention at this time. - Patient was counseled [id number] by myself (the billing provider) for the following immunizations and vaccine components, including side effects: Shingrix. Patient consents for immunization and understands risks and benefits. A VIS sheet on each immunization was given to the patient. - Glaucoma screening recommended. - CBC - COMP METABOLIC PANEL - LIPID PANEL BASIC 2. Special screening for malignant neoplasms, colon - ICD9: V76.51, ICD10: Z12.11 - COLONOSCOPY SCREENING - PEG 3350 240 GRAM-ELECTROLYTES 22.72 GRAM-6.72 G-5.84 G POWDR FOR SOLN 3. Arthritis of both knees - ICD9: 716.96, ICD10: M17.[address] Stahl. 4. Screening for prostate cancer - ICD9: V76.44, ICD10: Z12.5 - PSA/PROSTSPECAG SCRN 5. Screening for HIV without presence of risk factors - ICD9: V73.89, ICD10: Z11.4 - HIV 1 2 COMBO(AG/AB),WITH REFLEX TO DIFFERENTIATION 6. Encounter for hepatitis C screening test for low risk patient - ICD9: V73.89, ICD10: Z11.59 - HEP C AB IA W/CONF SCRN John Sutton MD TR OPEN ACCESS QUESTIONNAIRE 1. Are you currently having any new or unusual stomach/gastrointestinal issues at this time such as constipation, diarrhea, abdominal pain, rectal bleeding etc?No 2. Do you have any difficulty swallowing? No 3. Do you have any implanted devices such as a defibrillator, pacemaker, cardiac stents or deep brain stimulator? No 4. Do you take any Blood thinners such as Coumadin, Plavix, Xarelto, Eliquis, Brilinta or any other blood thinner? No 5. Do you have any new or past cardiac (heart) or pulmonary (lung) issues? No 6. Do you currently use any oxygen? No 7. Have you been hospitalized in the past 6 weeks? No 8. Have you had difficulty with anesthesia previously re: Difficult intubation? No Other difficulty or allergic reaction to anesthesia other than post op N/V? No 9. Are you on dialysis? No 10. Do you have any bleeding disorders such as hemophilia or Factor 5? No 11. Are you an Insulin Dependent Diabetic? No IF ANY OF THE TOP ELEVEN QUESTIONS ARE ANSWERED YES PLEASE SCHEDULE THE PATIENT FOR A CONSULT. advised 12. Is the patient's BMI 40 or greater? No:There is no height or weight on file to calculate BMI.. 13. Do you take any narcotics or anti-Anxiety medications? No 14. Do you use any illegal or recreational drugs including marijuana? No 15. Any alcohol use: YES: What type of alcohol, how much and how often do you drink? : 6-8 - 12 ounce beers weekly 16. Have you been diagnosed with chronic liver disease such as hepatitis or cirrhosis? No 17. Do you have a seizure disorder? No 18. Do you have ulcerative colitis or Crohn's disease? No 19. Are you or could you be ? No 20. Any other important health information we should be made aware of prior to your colonoscopy? No To be completed by LIP: Did patient have MAC anesthesia with a previous endoscopy procedure? No Patient appropriate for Open Access Colonoscopy: Yes: appropriate for Open Access Procedure Checklist: Prior to closing the encounter: Complete questionnaire: Yes Confirm Prep order has been Ordered/Pended: Yes. ? Patient's procedure could be delayed if not given the script for the prep. Please ensure the prep is escripted to pharmacy or printed. Instructions for the prep will print upon filing or pending this smartset. Please send all open access questionnaires to [facility] Sched Pool #[id number] documented in this encounter [facility] 01-04-2022 Instructions John Sutton MD - 01/04/2022 11:14 AM EDT Recombinant shingles vaccine (Shingrix) is recommended; 2 doses 2-6 months apart. Please read information, check with your insurance, and schedule vaccination at your local pharmacy. A prescription is not required. If you are certain you have coverage to receive this vaccine in the office, we can schedule this for you. FASTING BLOOD WORK TODAY. Health Information For Patients and the Community How to Prepare for Your Colonoscopy Using Golytely, Nulytely, Trilyte or Colyte Preparations IMPORTANT - Please Read These Instructions at Least 2 Weeks Before Your Colonoscopy Bailey Instructions: ?Your bowel must be empty so that your doctor can clearly view your colon. Follow all of the instructions in this handout EXACTLY as they are written. If you do NOT follow the directions for when to start drinking the bowel preparation (see next page), your colonoscopy WILL be cancelled. ?Do NOT eat any solid food the ENTIRE day before your colonoscopy. ?Buy your bowel preparation at least 5 days before your colonoscopy. ?Do NOT mix the solution until the day before your colonoscopy. Designated Sales Representative Graphic Art on the Day of Your Exam A responsible family member or friend MUST come with you to your colonoscopy and REMAIN in the endoscopy area until you are discharged! You are NOT ALLOWED to drive, take a taxi or bus, or leave the Endoscopy Center ALONE. If you do not have a responsible student truck driver (family member or friend) with you to take you home, your exam cannot be done with sedation and will be cancelled. Medications Some of the medicines you take may need to be stopped or adjusted before your colonoscopy. You MUST call the doctor who ordered any of the following medicines at least 2 weeks before your colonoscopy. ?Blood thinners -- such as Coumadin (warfarin), Plavix (clopidogrel), Ticlid (ticlopidine hydrochloride), Agrylin (anagrelide), Xarelto (Rivaroxaban), Pradaxa (Dabigatran), Eliquis (Apixaban), and Effient (Prasugrel). ?Insulin or diabetes pills. Please call the doctor that monitors your glucose levels. Your insulin dosage may need to be adjusted due to the diet restrictions required with this bowel preparation. (Please bring your diabetes medicines with you on the day of your procedure.) If you take aspirin, take it and ALL other medications prescribed by your doctor. On the day of your colonoscopy, take your medications with a sip of water. Revised 08/2016 1 Five (5) Days Before Your Colonoscopy ?Do NOT take medicines that stop diarrhea -- such as Imodium , Kaopectate , or Pepto Bismol . ?Do NOT take fiber supplements -- such as Metamucil , Citrucel , or Perdiem . ?Do NOT take products that contain iron -- such as multi-vitamins -- (the label lists what is in the products). ?Do NOT take vitamin E. Buy the prescription bowel preparation solution at your local pharmacy or [facility]. Three (3) Days Before Your Colonoscopy Do NOT eat high-fiber foods -- such as popcorn, beans, seeds (flax, sunflower, quinoa), multigrain bread, nuts, salad/vegetables, or fresh and dried fruit. One (1) Day Before Your Colonoscopy Only drink clear liquids the ENTIRE DAY before your colonoscopy. Do NOT eat any solid foods. Drink at least 8 ounces of clear liquids every hour after waking up. The clear liquids you can drink include: ?water, apple, or white grape juice; broth; coffee or tea (without milk or creamer); clear carbonated beverages such as kaya erika or lemon-fort bidwell soda; Gatorade or other sports drinks (not red); Bruno-Aid or other flavored drinks (not red). You may eat plain jello or other gelatins (not red) or popsicles (not red). Do NOT drink alcohol on the day before or the day of the procedure. 2 Revised 08/2016 When to Mix and Drink Your Bowel Prep Follow the instructions on the label. After mixing, place the solution in the refrigerator for a couple of hours before drinking. You may add the flavor packet that came with the bowel preparation. DO NOT add ice, sugar or any flavorings to the solution. Evening Before Your Colonoscopy ?Start drinking the bowel preparation at 6 PM the evening before your colonoscopy. Drink an 8-oz glass of bowel preparation every 10 minutes. You must finish drinking the solution by 9 PM the night before your scheduled procedure. ?You may continue to drink clear liquids only until midnight. Do NOT eat or drink ANYTHING after midnight the night before your procedure or your procedure may be cancelled. This is for your safety and will reduce the risk of having any food or liquid in your stomach move into your lungs (aspiration) during a procedure. If you take aspirin, take it and ALL other prescribed medicines with a sip of water on the day of your colonoscopy. Contact Information: If you are unable to keep your appointment or have any questions about the instructions, please call the facility where the procedure is being performed. Call between the hours of 8:00 AM and 5:00 PM. If you are calling after 5:00 PM, please call Nurse exploration geologist at [phone]. [facility] [address] [place] [id number] Index # [id number] Revised 08/2016 3 Colonoscopy Procedure Overview Please Read Prior to the Procedure What is a Colonoscopy A colonoscopy is an outpatient procedure in which the inside of the large intestine (colon and rectum) is examined. A colonoscopy is commonly used to evaluate gastrointestinal symptoms, such as rectal and intestinal bleeding, abdominal pain, or changes in bowel habits. Colonoscopies are also performed in individuals without symptoms to check for colorectal polyps or cancer. A screening colonoscopy is recommended for anyone 50 years of age and older, and for anyone with parents, siblings or children with a history of colorectal cancer or polyps. What Happens Before a Colonoscopy To have a successful colonoscopy, your bowel must be empty so that your physician can clearly view the colon. To do this, it is very important to read and follow all of the instructions given to you at least 2 weeks BEFORE your exam. If your bowel is not empty, your colonoscopy will not be successful and may have to be repeated. If you feel nauseated or vomit while taking the bowel preparation, wait 30 minutes before drinking more fluid and start with small sips of solution. Some activity (such as walking) or a few soda crackers may help decrease the nausea you are feeling. If the nausea persists, please contact nurse career consultant at [phone]. You may experience skin irritation around the anus due to the passage of liquid stools. To prevent and treat skin irritation, you should: ?Apply Vaseline or Desitin ointment to the skin around the anus before drinking the bowel preparation medications. These products can be purchased at any drugstore. ?Wipe the skin after each bowel movement with disposable wet wipes instead of toilet paper. These are found in the toilet paper area of the store. ?Sit in a bathtub filled with warm water for 10 to 15 minutes after you finish passing a stool; after soaking, blot the skin dry with a soft cloth, apply Vaseline or Desitin ointment to the anal area, and place a cotton ball just outside your anus to absorb leaking fluid. What Happens During a Colonoscopy During a colonoscopy, an experienced physician uses a colonoscope (a long, flexible instrument about 1/2 inch in diameter) to view the lining of the colon. The colonoscope is inserted into the rectum and advanced through the large intestine. If necessary during a colonoscopy, small amounts of tissue can be removed for analysis (a biopsy) and polyps can be identified and entirely removed. In many cases, a colonoscopy allows accurate diagnosis and treatment of colorectal problems without the need for a major operation. Revised 08/2016 5 ?You are asked to wear a hospital gown and an IV will be started. ?You are given a pain reliever and a sedative intravenously (in your vein). You will feel relaxed and somewhat drowsy. ?You will lie on your left side, with your knees drawn up towards your chest. ?A small amount of air is used to expand the colon so the physician can see the colon mathew. ?You may feel mild cramping during the procedure. Cramping can be reduced by taking slow, deep breaths. ?The colonoscope is slowly withdrawn while the lining of your bowel is carefully examined. ?The procedure lasts from 30 minutes to 1 hour. What Happens After a Colonoscopy ?You will stay in a recovery room for observation until you are ready for discharge. ?You may feel some cramping or a sensation of having gas, but this quickly passes. ?If sedation has been given, a responsible family member or friend must drive you home. ?Avoid alcohol, driving, and operating machinery for 24 hours following the procedure. ?Unless otherwise instructed, you may immediately return to your normal diet. We recommend you wait until the day after your procedure to resume normal activities. ?If polyps were removed or a biopsy was taken, the physician performing your colonoscopy will tell you when it is safe to resume taking your blood thinners. ?If a biopsy was taken or a polyp was removed, you may notice a little amount of rectal bleeding for 1 to 2 days after the procedure. If you have a large amount of rectal bleeding, high or persistent fevers, or severe abdominal pain within the next 2 weeks, please go to your local emergency room and call the physician who performed your exam. 6 Revised 08/2016 Copyright 5304-4501 [facility]. All rights reserved. Revised 08/2016 documented in this encounter [facility] documented as of this encounter (statuses as of 01/04/2022) [facility] History of Past illness Narrative* Problem Noted Date Resolved Date Cough 08/27/2008 01/04/2022 Overview: Miguel 2-: rec stopping Lisinopril 4-6 weeks, consider CXR, barium swallow, PFT Epistaxis 05/20/2008 01/04/2022 Overview: Had R nares cauterized with Miguel in 04-15: was using 2 advil a day at the time Unspecified sleep apnea 12/16/2007 01/05/20 Overview: Declined testing for sleep for wt loss as of 12-14: agreed 05-16 Not scheduled as of 07-17: not calling back Obesity, unspecified 12/16/2007 01/04/2022 Overview: TSH 1.8 in 12-14 Plans to meet with friend's who is a nozzleman as of 02-13: to e-mail about plan Contacted his brother in [place] about his activities as he is in good shape Down almost 25 pounds as of 06-15 Unspecified essential hypertension 12/16/2007 01/04/2022 Overview: Repeat 142/88 in 12-14: declined sleep testing for wt loss LDL 100, HDL 42, TG 137 in 12-14 Started Lisin/HCTZ 10/12.5 mg in 05-16: holding for cough as of 07-17 documented as of this encounter (statuses as of 01/04/2022) [facility] History of Past illness Narrative* Problem Noted Date Resolved Date Cough 08/27/2008 01/04/2022 Overview: Miguel 2-09: rec stopping Lisinopril 4-6 weeks, consider CXR, barium swallow, PFT Epistaxis 05/20/2008 01/04/2022 Overview: Had R nares cauterized with Miguel in 04-15: was using 2 advil a day at the time Unspecified sleep apnea 12/16/2007 01/05/20 22 Overview: Declined testing for sleep for wt loss as of 12-14: agreed 05-16 Not scheduled as of 07-17: not calling back Obesity, unspecified 12/16/2007 01/04/2022 Overview: TSH 1.8 in 12-14 Plans to meet with friend's who is a nozzleman as of 02-13: to e-mail about plan Contacted his brother in [place] about his activities as he is in good shape Down almost 25 pounds as of 06-15 Unspecified essential hypertension 12/16/2007 01/04/2022 Overview: Repeat 142/88 in 12-14: declined sleep testing for wt loss LDL 100, HDL 42, TG 137 in 12-14 Started Lisin/HCTZ 1012.5 mg in 05-16: holding for cough as of 07-17 documented as of this encounter (statuses as of 01/17/2022) [facility] History of Past illness Narrative* Problem Noted Date Resolved Date Cough 08/27/2008 01/04/2022 Overview: Miguel 08-17: rec stopping Lisinopril 4-6 weeks, consider CXR, barium swallow, PFT Epistaxis 05/20/2008 01/04/2022 Overview: Had R nares cauterized with Miguel in 04-15: was using 2 advil a day at the time Unspecified sleep apnea 12/16/2007 01/05/20 22 Overview: Declined testing for sleep for wt loss as of 12-14: agreed 05-16 Not scheduled as of 07-17: not calling back Obesity, unspecified 12/16/2007 01/04/2022 Overview: TSH 1.8 in 12-14 Plans to meet with friend's who is a nozzleman as of 02-13: to e-mail about plan Contacted his brother in [place] about his activities as he is in good shape Down almost 25 pounds as of 06-15 Unspecified essential hypertension 12/16/2007 01/04/2022 Overview: Repeat 142/88 in 12-14: declined sleep testing for wt loss LDL 100, HDL 42, TG 137 in 12-14 Started Lisin/HCTZ 10/12.5 mg in 05-16: holding for cough as of 07-17 documented as of this encounter (statuses as of 03/04/2022) [facility] History of Past illness Narrative* Problem Noted Date Resolved Date Cough 08/27/2008 01/04/2022 Overview: Miguel 08-17: rec stopping Lisinopril 4-6 weeks, consider CXR, barium swallow, PFT Epistaxis 05/20/2008 01/04/2022 Overview: Had R nares cauterized with Miguel in 04-15: was using 2 advil a day at the time Unspecified sleep apnea 12/16/2007 01/05/20 Overview: Declined testing for sleep for wt loss as of 12-14: agreed 05-16 Not scheduled as of 07-17: not calling back Obesity, unspecified 12/16/2007 01/04/2022 Overview: TSH 1.8 in 12-14 Plans to meet with friend's who is a nozzleman as of 02-13: to e-mail about plan Contacted his brother in [place] about his activities as he is in good shape Down almost 25 pounds as of 06-15 Unspecified essential hypertension 12/16/2007 01/04/2022 Overview: Repeat 142/88 in 12-14: declined sleep testing for wt loss LDL 100, HDL 42, TG 137 in 12-14 Started Lisin/HCTZ 10/12.5 mg in 05-16: holding for cough as of 07-17 documented as of this encounter (statuses as of 04/20/2022) [facility] History of Past illness Narrative* Problem Noted Date Resolved Date Cough 08/27/2008 01/04/2022 Overview: Miguel 2-: rec stopping Lisinopril 4-6 weeks, consider CXR, barium swallow, PFT Epistaxis 05/20/2008 01/04/2022 Overview: Had R nares cauterized with Miguel in 04-15: was using 2 advil a day at the time Unspecified sleep apnea 12/16/2007 01/05/20 Overview: Declined testing for sleep for wt loss as of 12-14: agreed 05-16 Not scheduled as of 07-17: not calling back Obesity, unspecified 12/16/2007 01/04/2022 Overview: TSH 1.8 in 12-14 Plans to meet with friend's who is a nozzleman as of 02-13: to e-mail about plan Contacted his brother in [place] about his activities as he is in good shape Down almost 25 pounds as of 06-15 Unspecified essential hypertension 12/16/2007 01/04/2022 Overview: Repeat 142/88 in 12-14: declined sleep testing for wt loss LDL 100, HDL 42, TG 137 in 12-14 Started Lisin/HCTZ 10/12.5 mg in 05-16: holding for cough as of 07-17 documented as of this encounter (statuses as of 08/15/2022) [facility] History of Past illness Narrative* Problem Noted Date Resolved Date Cough 08/27/2008 01/04/2022 Overview: Miguel 2: rec stopping Lisinopril 4-6 weeks, consider CXR, barium swallow, PFT Epistaxis 05/20/2008 01/04/2022 Overview: Had R nares cauterized with Miguel in 04-15: was using 2 advil a day at the time Unspecified sleep apnea 12/16/2007 01/05/20 22 Overview: Declined testing for sleep for wt loss as of 12-14: agreed 05-16 Not scheduled as of 07-17: not calling back Obesity, unspecified 12/16/2007 01/04/2022 Overview: TSH 1.8 in 12-14 Plans to meet with friend's who is a nozzleman as of 02-13: to e-mail about plan Contacted his brother in [place] about his activities as he is in good shape Down almost 25 pounds as of 06-15 Unspecified essential hypertension 12/16/2007 01/04/2022 Overview: Repeat 142/88 in 12-14: declined sleep testing for wt loss LDL 100, HDL 42, TG 137 in 12-14 Started Lisin/HCTZ 10/12.5 mg in 05-16: holding for cough as of 07-17 documented as of this encounter (statuses as of 08/22/2022) [facility] History of Past illness Narrative* Problem Noted Date Resolved Date Cough 08/27/2008 01/04/2022 Overview: Miguel 08-17: rec stopping Lisinopril 4-6 weeks, consider CXR, barium swallow, PFT Epistaxis 05/20/2008 01/04/2022 Overview: Had R nares cauterized with Miguel in 04-15: was using 2 advil a day at the time Unspecified sleep apnea 12/16/2007 01/05/20 22 Overview: Declined testing for sleep for wt loss as of 12-14: agreed 05-16 Not scheduled as of 07-17: not calling back Obesity, unspecified 12/16/2007 01/04/2022 Overview: TSH 1.8 in 12-14 Plans to meet with friend's who is a nozzleman as of 02-13: to e-mail about plan Contacted his brother in [place] about his activities as he is in good shape Down almost 25 pounds as of 06-15 Unspecified essential hypertension 12/16/2007 01/04/2022 Overview: Repeat 142/88 in 12-14: declined sleep testing for wt loss LDL 100, HDL 42, TG 137 in 12-14 Started Lisin/HCTZ 10/12.5 mg in 05-16: holding for cough as of 07-17 documented as of this encounter (statuses as of 08/30/2022) [facility] History of Past illness Narrative* Problem Noted Date Diagnosed Date Resolved Date Cough 08/27/2008 01/04/2022 Overview: Miguel 08-17: rec stopping Lisinopril 4-6 weeks, consider CXR, barium swallow, PFT Epistaxis 05/20/2008 01/04/2022 Overview: Had R radha cauterized with Miguel in 04-15: was using 2 advil a day at the time Unspecified sleep apnea 12/16/200712/08 Overview: Declined testing for sleep for wt loss as of 12-14: agreed 05-16 Not scheduled as of 07-17: not calling back Obesity, unspecified 12/16/2007 022 Overview: TSH 1.8 in 12-14 Plans to meet with friend's who is a nozzleman as of 02-13: to e-mail about plan Contacted his brother in [place] about his activities as he is in good shape Down almost 25 pounds as of 06-15 Unspecified essential hypertension 12/16/2007 01/04/2022 Overview: Repeat 142/88 in 12-14: declined sleep testing for wt loss LDL 100, HDL 42, TG 137 in 12-14 Started Lisin/HCTZ 10/12.5 mg in 05-16: holding for cough as of 07-17 documented as of this encounter (statuses as of 05/12/2023) [facility] note* Diagnosis Routine medical exam- Primary Routine general medical examination at a health care facility Special screening for malignant neoplasms, colon Arthritis of both knees Unspecified arthropathy, lower leg Screening for prostate cancer Special screening for malignant neoplasm of prostate Screening for HIV without presence of risk factors Special screening examination for other specified viral diseases Encounter for hepatitis C screening test for low risk patient documented in this encounter [facility] note* Diagnosis Screening for colon cancer- Primary Special screening for malignant neoplasms, colon Special screening for malignant neoplasms, colon documented in this encounter [facility] note* Diagnosis Preoperative examination- Primary Preoperative examination, unspecified Arthritis of both knees Unspecified arthropathy, lower leg documented in this encounter [facility] note* Diagnosis Preoperative examination- Primary Preoperative examination, unspecified Arthritis of both knees Unspecified arthropathy, lower leg Need for COVID-19 vaccine Need for vaccination Need for prophylactic vaccination and inoculation against unspecified single disease documented in this encounter [facility] for referral (narrative)* Outpatient Procedure (Routine) - Pending Review Specialty Diagnoses / Procedures Referred By George alarcon Referred To Contact [facility] Diagnoses Special screening for malignant neoplasms, colon Procedures COLONOSCOPY SCREENING COLONOSCOPY FLX DX W/COLLJ SPEC WHEN John Muniz MD [address] [place] [address] [facility] [place] [address] Referral ID Status Reason Start Date Expiration Date Visits Requested Visits Authorized [id number] Pending Review Auto-Generat ed Referral 01/04/2022 01/04/2023 1 1 [facility] for referral (narrative)* Outpatient Procedure (Routine) - Closed Specialty Diagnoses / Procedures Referred By George alarcon Referred To Contact [facility] Diagnoses Special screening for malignant neoplasms, colon Procedures COLONOSCOPY SCREENING COLONOSCOPY FLX DX W/COLLJ SPEC WHEN John Muniz MD [address] [place] [address] [facility] [place] [address] [place] [address] Referral ID Status Reason Start Date Expiration Date V isits Requested Visits Authorized [id number] Closed Auto-Generate d Referral 02/01/2022 02/01/2023 1 1 [facility] for referral (narrative)* Outpatient Procedure (Routine) - Closed Specialty Diagnoses / Procedures Referred By Contac t Referred To Contact [facility] [place] Diagnoses Preoperative examination Procedures ECG COMPLETE ECG ROUTINE ECG W/LEAST 12 LDS W/I&R John Sutton MD [address] [place] [address] [facility] [address] [address] Referral ID Status Reason Start Date Expiration Date V isits Requested Visits Authorized [id number] Closed Auto-Generate d Referral 08/15/2022 08/15/2023 1 1 [facility] for referral (narrative)* Outpatient Procedure (Routine) - Pending Review Specialty Diagnoses / Procedures Referred By Contivan t Referred To Contact [facility] Diagnoses Preoperative examination Procedures ECG COMPLETE ECG ROUTINE ECG W/LEAST 12 LDS W/I&R John Sutton MD [address] [place] [address] [address] Referral ID Status Reason Start Date Expiration Date Visits Requested Visits Authorized [id number] Pending Review Auto-Generat ed Referral 05/11/2023 05/10/2024 1 1 [facility] for visit Narrative* Outpatient Procedure (Routine) - Closed Specialty Diagnoses / Procedures Referred By Contac t Referred To Contact [facility] Diagnoses Special screening for malignant neoplasms, colon Procedures COLONOSCOPY SCREENING COLONOSCOPY FLX DX W/COLLJ SPEC WHEN John Muniz MD [address] [place] [address] [facility] [place] [address] [place], [place] [address], [place] [address] Referral ID Status Reason Start Date Expiration Date V isits Requested Visits Authorized [id number] Closed Auto-Generate d Referral 02/01/2022 02/01/2023 1 1 [facility] Medications Administered Section Inactive Administered Medications - up to 3 most recent administrations Medication Order MAR Action Action Date Dose Rate Site diphenhydrAMINE 12.5-50 mg injection (BENADRYL) 12.5-50 mg, INTRAVENOUS, DIRECTED, Starting on Sun03/03/22 at 1230, Until Sun03/03/22 at 1629, DOSING DIRECTED BY PHYSICIAN FOR PROCEDURAL SEDATION ONLY, Intraprocedure Given 03/03/2022 11:58 AM EDT 50 mg fentaNYL 50 mcg/mL 25-100 mcg injection (SUBLIMAZE) 25-100 mcg, INTRAVENOUS, DIRECTED, Starting on Sun03/03/22 at 1230, Until Sun03/03/22 at 1629, DOSING DIRECTED BY PHYSICIAN FOR PROCEDURAL SEDATION ONLY, Intraprocedure Given 03/03/2022 12:07 PM EDT 50 mcg Summary Purpose Family History No Family History Records Found Advance Directives No Advanced Directives Records Found Additional Source Comments Source Comments (unrecognize d section and content) In the event this informatio n is protected by the Federal Confidentiality of Alcohol and Drug Abuse Patient Records regulations: The Federal rules restrict any use of the information to criminally investigate or prosecute any alcohol or drug abuse patient.[facility] the event this information is protected by the Federal Confidentiality of Alcohol and Drug Abuse Patient Records regulations: The Federal rules restrict any use of the information to criminally investigate or prosecute any alcohol or drug abuse patient.[facility] the event this information is protected by the Federal Confidentiality of Alcohol and Drug Abuse Patient Records regulations: The Federal rules restrict any use of the information to criminally investigate or prosecute any alcohol or drug abuse patient.[facility] the event this information is protected by the Federal Confidentiality of Alcohol and Drug Abuse Patient Records regulations: The Federal rules restrict any use of the information to criminally investigate or prosecute any alcohol or drug abuse patient.[facility] the event this information is protected by the Federal Confidentiality of Alcohol and Drug Abuse Patient Records regulations: The Federal rules restrict any use of the information to criminally investigate or prosecute any alcohol or drug abuse patient.[facility] the event this information is protected by the Federal Confidentiality of Alcohol and Drug Abuse Patient Records regulations: The Federal rules restrict any use of the information to criminally investigate or prosecute any alcohol or drug abuse patient.[facility] the event this information is protected by the Federal Confidentiality of Alcohol and Drug Abuse Patient Records regulations: The Federal rules restrict any use of the information to criminally investigate or prosecute any alcohol or drug abuse patient.[facility] the event this information is protected by the Federal Confidentiality of Alcohol and Drug Abuse Patient Records regulations: The Federal rules restrict any use of the information to criminally investigate or prosecute any alcohol or drug abuse patient.[facility] the event this information is protected by the Federal Confidentiality of Alcohol and Drug Abuse Patient Records regulations: The Federal rules restrict any use of the information to criminally investigate or prosecute any alcohol or drug abuse patient.[facility] Care Teams (unrecognized sec tion and content) Mandarin Tutor Relationship Specialty Start Date End Date John Sutton MD [address] [place], [place] [id number] PCP - General Internal Medicine 01/04/22 Mandarin Tutor Relationship Specialty Start Date End Date John Sutton MD [address] [place] [address] PCP - General Internal Medicine 01/04/22 Mandarin Tutor Relationship Specialty Start Date End Date John Sutton MD [address] [place] [address] PCP - General Internal Medicine 01/04/22 Mandarin Tutor Relationship Specialty Start Date End Date John Sutton MD [address] [place] [address] PCP - General Internal Medicine 01/04/22 Mandarin Tutor Relationship Specialty Start Date End Date John Sutton MD [address] [place] [address] PCP - General Internal Medicine 01/04/22 Mandarin Tutor Relationship Specialty Start Date End Date John Sutton MD [address] [place] [address] PCP - General Internal Medicine 01/04/22 Mandarin Tutor Relationship Specialty Start Date End Date John Sutton MD [address] [place] [address] PCP - General Internal Medicine 01/04/22 Reason for Visit (unrecogniz ed section and content) Reason Comments Results Reason Comments Patient Update Reason Comments Pre-Op Exam Reason Comments Faxed results Reason Comments Pre-Op Exam Exam for pre-op tam al, Left knee replacement scheduled 07/19/23 (unrecognized sect ion and content) No Status Records Found INFORMATION SOURCE (unrecogn ized section and content) FOR RECORDS PERTAINING TO PATIENTS WHO ARE OR HAVE BEEN ENROLLED IN A CHEMICAL DEPENDENCY/SUBSTANCEABUSE PROGRAM, SOME INFORMATION MAY BE OMITTED. This clinical summary was aggregated from multiple sources. Caution should be exercised in using it in the provision of clinical care. This summary normalizes information from multiple sources, and as a consequence, information in this document may materially change the coding, format and clinical context of patient data. In addition, data may be omitted in some cases. CLINICAL DECISIONS SHOULD BE BASED ON THE PRIMARY CLINICAL RECORDS. [facility]. provides no warranty or guarantee of the accuracy or completeness of information in this document.
[2023-07-18 12:41] LABS: Absolute Lymphocyte Count 1.71 X10^3/uL (0.83-4.51); Absolute Neutrophil Count 4.5 X10^3/uL (2.0-7.7); Basophil# 0.03 X10^3/uL; Basophil% 0.4 % (0-1); Eosinophil# 0.04 X10^3/uL; Eosinophils% 0.6 % (0-5); Hematocrit 42.4 % (40-54); Hemoglobin 14.1 g/dL (13.0-16.5); Lymphocyte # 1.71 X10^3/ul (0.83-4.51); Lymphocyte % 24.5 % (19-41); Mean Corp Hgb Conc 33.3 g/dL (32-36); Mean Corpuscular Hgb 29.3 pg (27.0-32.0); Mean Corpuscular Volume 88.1 fL (80-94); Mean Platelet Vol. 10.4 fl (6.2-12.0); Monocyte# 0.67 X10^3/uL; Monocyte% 9.6 % (0-10); NRBC Flagged by Analyzer 0 % (0-5); Neutrophil % 64.6 % (47-70); Platelet Count 243 K/mm3 (150-450); RBC Distribution Width CV 13.1 % (11.6-14.6); RBC Distribution Width SD 42.3 fl (35.1-43.9); Red Blood Count 4.81 M/mm3 (4.6-6.2)
[2023-07-18 13:29] LABS: Albumin, Serum 3.7 g/dL (3.2-5.0); Anion Gap 8 (5-15); BUN 19 mg/dL (7-18); BUN/Creat Ratio 15.6 RATIO (10-20); Calcium,Total 9.2 mg/dL (8.5-10.1); Chloride 111 mmol/L (98-107); Creatinine, Serum 1.22 mg/dL (0.70-1.30); EST Glomerular Filtration Rate 65 mL/min (>60); Est Glom Filt Rate - Afr Amer 79 mL/min (>60); Glucose 92 mg/dL (74-106); Potassium 4.2 mmol/L (3.5-5.1); Sodium Level 141 mmol/L (136-145)
== END | disposition home or self-care (01) ==
PROVIDERS: PCP Internal Medicine; Referring Provider Specialist; Visit Provider Specialist
DX: Z01.812 Encounter for preprocedural laboratory examination (principal); M17.12 Unilateral primary osteoarthritis, left knee; M21.162 Varus deformity, not elsewhere classified, left knee
CPT/HCPCS: 36415; 80048; 82040; 85025

== ENCOUNTER 2023-12-24 20:32 | Observation (INO) | payer BC, SELFPAY ==
[2023-12-24 20:32] VITALS: BP 142/84; PULSE 124; RESP 18; TEMP 36.6; O2SAT 97; BMI 31.4
--- NOTE | 2023-12-24 20:36 | EKG12_ITS ---
Test Reason : CP Blood Pressure : / mmHG Vent. Rate : 098 BPM Atrial Rate : 220 BPM P-R Int : 000 ms QRS Dur : 078 ms QT Int : 324 ms P-R-T Axes : 074 029 057 degrees QTc Int : 413 ms Normal sinus rhythm with PAC's Nonspecific ST abnormality Abnormal ECG Confirmed by TIFF MONACO, CANDELARIA ([id number]), video effects editor AVANI WATTERS ([id number]) on 12/25/2023 11:28:12 AM Referred By: Confirmed By:CANDELARIA MATTHEW MD
--- NOTE | 2023-12-24 20:50 | RAD_ITS ---
STUDY: X-RAY CHEST REASON FOR EXAM: Male, 58 years old. chest pain TECHNIQUE: AP portable COMPARISON: None. FINDINGS: There is less than optimal inspiratory effort however the lungs are clear. There is no demonstrated pleural abnormality. Normal size heart. Normal mediastinum and alban. Normal visualized pulmonary arteries. Normal visualized aortic arch and descending thoracic aorta. Dorsal spine demonstrates mild spondylosis. Normal visualized ribs, clavicles, and shoulders. There is no demonstrated abnormality of the visualized soft tissue structures of the upper abdomen. RAD/Chest 1 View (Portable) IMPRESSION: Diminished inspiratory effort. No acute disease Electronically Signed: Demetrio Fernandez MD at 21:29 EDT ,
[2023-12-24 20:59] LABS: Absolute Lymphocyte Count 1.51 X10^3/uL (0.83-4.51); Absolute Neutrophil Count 8.2 X10^3/uL (2.0-7.7); Basophil# 0.03 X10^3/uL; Basophil% 0.3 % (0-1); Eosinophil# 0.02 X10^3/uL; Eosinophils% 0.2 % (0-5); Hematocrit 43.6 % (40-54); Hemoglobin 13.7 g/dL (13.0-16.5); Lymphocyte # 1.51 X10^3/ul (0.83-4.51); Lymphocyte % 13.1 % (19-41); Mean Corp Hgb Conc 31.4 g/dL (32-36); Mean Corpuscular Hgb 28.5 pg (27.0-32.0); Mean Corpuscular Volume 90.8 fL (80-94); Mean Platelet Vol. 10.3 fl (6.2-12.0); Monocyte# 1.72 X10^3/uL; Monocyte% 14.9 % (0-10); NRBC Flagged by Analyzer 0 % (0-5); Neutrophil # 8.24 X10^3/uL (2.7-7.7); Neutrophil % 71.3 % (47-70); POSITIVE DIFFERENTIAL YES; Platelet Count 238 K/mm3 (150-450); RBC Distribution Width CV 13.3 % (11.6-14.6); RBC Distribution Width SD 44.6 fl (35.1-43.9); White Blood Count 11.5 K/mm3 (4.4-11.0)
[2023-12-24 21:00] LABS: Differential Indicated SCAN CRITERIA MET
[2023-12-24 21:21] LABS: Anion Gap 6 (5-15); BUN 12 mg/dL (7-18); BUN/Creat Ratio 10.6 RATIO (10-20); Chloride 105 mmol/L (98-107); Creatinine, Serum 1.13 mg/dL (0.70-1.30); EST Glomerular Filtration Rate 71 mL/min (>60); Est Glom Filt Rate - Afr Amer 86 mL/min (>60); Estimated Creatinine Clearance 91.41 ml/min; Glucose 138 mg/dL (74-106); Potassium 3.8 mmol/L (3.5-5.1); Sodium Level 138 mmol/L (136-145); Troponin-I HS (w/2H Reflex) 3 pg/mL (3.0-78.0)
[2023-12-24 21:32] VITALS: BP 141/71; PULSE 106; RESP 25; O2SAT 97
[2023-12-24 21:39] LABS: Differential Comment SCANNED
--- NOTE | 2023-12-24 21:49 | EKG12_ITS ---
Test Reason : REPEAT Blood Pressure : / mmHG Vent. Rate : 107 BPM Atrial Rate : 000 BPM P-R Int : 000 ms QRS Dur : 074 ms QT Int : 336 ms P-R-T Axes : 000 027 040 degrees QTc Int : 448 ms Atrial fibrillation with rapid ventricular response Abnormal ECG Confirmed by TIFF MONACO, CANDELARIA ([id number]), supervising editor trailer AVANI WATTERS ([id number]) on 12/25/2023 11:29:14 AM Referred By: Confirmed By:CANDELARIA MATTHEW MD
--- NOTE | 2023-12-24 21:54 | CT_ITS ---
EXAM: CT ANGIOGRAPHY CHEST WITHOUT AND WITH INTRAVENOUS CONTRAST CLINICAL INDICATION: pulmonary embolism TECHNIQUE: Helically acquired angiography images were obtained of the chest without and with intravenous contrast. This CT exam was performed using one or more of the following dose reduction techniques: automated exposure control, adjustment of the mA and/or kV according to patient size, and/or use of iterative reconstruction technique. MIP reconstructed images were created and reviewed. CONTRAST: IV 100mL [id number] COMPARISON: No relevant prior studies available. FINDINGS: PULMONARY ARTERIES: Unremarkable. Normal in caliber. No evidence of pulmonary embolism. AORTA: Unremarkable. Normal in caliber. No evidence of dissection. GREAT VESSELS OF AORTIC ARCH: Unremarkable. Normal in caliber. No evidence of dissection. LUNGS AND PLEURAL SPACES: Atelectasis in the lung bases. No mass. No pleural effusion or thickening. No pneumothorax. HEART: There is a pericardial effusion that measures 1.5 cm in greatest diameter. Heart size is normal. No significant coronary artery calcifications. MEDIASTINUM: Unremarkable. No mediastinal or hilar adenopathy. Esophagus is unremarkable. No hiatal hernia. THYROID: Unremarkable. No thyroid lesions. BONES/JOINTS: Unremarkable. No suspicious lytic or blastic abnormality. CT/CTA Chest W/WO Contrast IMPRESSION: 1. No evidence of pulmonary embolus. 2. Minimal bibasilar atelectasis. There is a small pericardial effusion. Electronically Signed: Issa Hampton MD at 23:20 EDT ,
--- NOTE | 2023-12-24 21:55 | ED.VIS.CHEST ---
HPI History of Present Illness Chief Complaint: Chest Pain Informant: patient and spouse/S.O. Narrative Narrative: 58-year-old male presenting to the emergency room for the evaluation of chest pain. Patient states that yesterday morning when he woke from sleep he had tightness anterior aspect of his chest that seem to go into his back. He notes discomfort in between his shoulder blades. When he goes to take a deep breath he states that he feels like he just cannot finish the breath. He works out on a very regular basis both aerobically and anaerobically. He currently states he has no medical problems takes no medications or supplements. He notes that he his mother has recently been diagnosed with COVID. He has been under some stress lately with their physical health. Denies any recent travel or known DVT PE risk factors. He does not believe he has sleep apnea and states he does not snore. PFSH PFSH Medical History no medical history no medical history Allergy/AdvReac Type Severity Reaction Status Date / Time No Known Allergies Allergy Verified 12/24/23 20:34 Surgical History Total knee replacement status Social History Smoking Status: Former smoker ROS ROS ED Constitutional Constitutional ED: Denies chills, fever(s) or weight loss Eyes Eyes: Denies change in vision or diplopia ENT ENT ED: Denies ear pain, rhinorrhea or sore throat Cardiovascular Cardiovascular: Reports chest pain; Denies orthopnea, palpitations, paroxysmal nocturnal dyspnea or racing heartbeat Respiratory/Chest Respiratory/Chest: Reports dyspnea; Denies cough, dyspnea on exertion, orthopnea or paroxysmal nocturnal dyspnea Gastrointestinal Gastrointestinal: Denies abdominal pain, diarrhea, nausea or vomiting Genitourinary Genitourinary ED: Denies dysuria, hematuria or urinary frequency Musculoskeletal Musculoskeletal: Reports back pain; Denies arthralgias or myalgias Integumentary Denies abscess or rash Neurologic Neurologic: Denies headache(s) or weakness Psychiatric Psychiatric: Denies anxiety, depression, suicidal ideation or suicidal thoughts Endocrine Endocrinology: Denies polydipsia, polyphagia or polyuria Allergic/Immunologic Allergic/Immunologic ED: Denies mouth swelling, tongue swelling or urticaria EXAM Physical Exam Const Vital Signs: 12/24/23 20:32 12/24/23 20:36 12/24/23 21:32 Temperature 97.8 F Temperature Source Temporal Pulse Rate 124 H 106 H Respiratory Rate 18 25 H Blood Pressure 142/84 H 141/71 H Blood Pressure Mean 103 94 Pulse Ox 97 97 Oxygen Delivery Method Room Air Room Air 12/24/23 22:00 12/24/23 23:00 Temperature Temperature Source Pulse Rate 85 105 H Respiratory Rate 16 18 Blood Pressure 135/101 H 140/84 H Blood Pressure Mean 112 102 Pulse Ox 97 98 Oxygen Delivery Method Room Air Room Air Positive well nourished and well developed General Appearance ED: well developed HEENT Reports normocephalic, head/scalp atraumatic and moist mucous membranes Eyes PERRL and EOMs intact bilaterally Neck no lymphadenopathy, supple and no JVD Resp normal respiratory effort and clear to auscultation bilaterally Cardio no murmurs Rate: tachycardic Rhythm: abnormal rhythm irregularly irregular GI normal to inspection, nondistended, normoactive bowel sounds and non-tender Palpation: soft Back/Spine no CVA tenderness and normal ROM Extremity normal to inspection General Extremety ED: Negative for edema General Extremity: Negative for edema Neuro oriented x3 and CN's II-XII intact bilaterally Sensorium / Orientation: alert Motor Exam: strength 5/5 throughout Psych mental status grossly normal Mood & Affect: Negative for depressed or tearful Skin no rashes or lesions noted and no wounds MDM MDM MDM Narrative Medical decision making narrative: Differential diagnosis includes but not limited to cardiac dysrhythmia ACS valvular heart disease pulmonary hypertension pneumothorax aortic dissection pulmonary embolism electrolyte abnormalities thyroid disorder EKG confirms atrial flutter. Patient received a dose of Cardizem IV. White count 11.5 electrolytes are within normal limits TSH is normal blood glucose 138 troponin is 3. My independent interpretation of the chest x-ray is no acute process. CTA of the chest was obtained which does not demonstrate any obvious pulmonary embolism or dissection. Patient has been trying to convert on the monitor dropping down into the 80s with some sinus beats with PACs but then unfortunately will go back into what I assume is atrial flutter between 100-110. He will be given a dose of Lovenox. Case was discussed with Dr. Cline who will be down to admit the patient. Patient and his are updated. History & Record Review Discussion w/independent historian: Patient and Significant other Lab Data Attestation: I reviewed the patient's lab results. Labs: Laboratory Results - last 24 hr 12/24/23 20:45 WBC 11.5 H RBC 4.80 Hgb 13.7 Hct 43.6 MCV 90.8 MCH 28.5 MCHC 31.4 L RDW Std Deviation 44.6 H RDW Coeff of Josep 13.3 Plt Count 238 MPV 10.3 Immature Gran % (Auto) 0.200 Neut % (Auto) 71.3 H Lymph % (Auto) 13.1 L [place] % (Auto) 14.9 H Eos % (Auto) 0.2 Baso % (Auto) 0.3 Absolute Neuts (auto) 8.2 H Absolute Lymphs (auto) 1.51 Nucleated RBC % 0 Differential Comment SCANNED Diff Path Review May foll Sodium 138 Potassium 3.8 Chloride 105 Carbon Dioxide 27.0 Anion Gap 6 BUN 12 Creatinine 1.13 Estim Creat Clear Calc 91.41 Est GFR (MDRD) Af Amer 86 Est GFR (MDRD) Non-Af 71 BUN/Creatinine Ratio 10.6 Glucose 138 H Calcium 9.0 Magnesium 2.1 Troponin I High Sens 3 TSH 0.76 Radiography Diagnostic Testing: Clinical Impression(s) from Imaging Studies Chest X-Ray 12/24/23 20:50 IMPRESSION: Diminished inspiratory effort. No acute disease Electronically Signed: Demetrio Fernandez MD at 21:29 EDT , Chest CTA 12/24/23 21:54 IMPRESSION: 1. No evidence of pulmonary embolus. 2. Minimal bibasilar atelectasis. There is a small pericardial effusion. Electronically Signed: Issa Hampton MD at 23:20 EDT , EKG Initial EKG: Attestation: I personally reviewed and interpreted this EKG as follows: Comments: Initial EKG is concerning for atrial flutter with variable block at a rate of 98 bpm. There are nonspecific ST abnormalities noted. Follow-up EKG: Attestation: I personally reviewed and interpreted this EKG as follows: Comments: Atrial flutter with RVR ventricular rate of 107 bpm Discharge Plan Triage Chief Complaint: Chest Pain ED Provider: Ruben Sifuentes Dx/Rx/DC Orders Primary Care Provider: John Rios Referrals: John Rios MD [Primary Care Provider] - Print Language: Nepalese
[2023-12-24 22:00] VITALS: BP 135/101; PULSE 85; RESP 16; O2SAT 97
[2023-12-24] MEDS: dilTIAZem 25 MG/5 ML Vial 10 MG IV BOLUS (22:01)
[2023-12-24 22:41] LABS: Magnesium 2.1 mg/dL (1.6-2.6); Thyroid Stim Hormone (TSH) 0.76 uIU/mL (0.358-3.74)
[2023-12-24 22:56] LABS: Reflex Troponin-HS? (from REC) Y
[2023-12-24 23:00] VITALS: BP 140/84; PULSE 105; RESP 18; O2SAT 98
--- NOTE | 2023-12-24 23:22 | HP.PCM.HOS_ITS ---
HPI - General General Date of Admission: 12/24/23 Date of Service: 12/24/23 Chief Complaint: Chest Pain and Palpitations. HPI Narrative MIESHA TAPIA, is a 58 M with a past medical history of previous smokeless tobacco abuse (quit ~2019), obesity; with BMI of 31.4 this admission, history of Right lower extremity superficial vein thrombophlebitis (2012) and osteoarthritis; s/p bilateral TKR's who presents to [facility] ER complaining of chest pain. Mr. Tapia reports his symptoms began yesterday morning when he woke up from sleep with that sensation of tightness in his chest that was anterior and radiated into his back. He also noted pain in between his shoulder blades that was made worse when taking a deep breath feeling like he cannot finish the breath. He works out on a very regular basis aerobically and anaerobically 6 days/week routinely though he admits to a relatively poor diet. He currently states he has no medical problems and takes no medications or dietary supplements. He does admit his mother has been recently diagnosed with COVID-19 and he has had increased levels of stress but he denies fever, chills, nausea, vomiting, snoring, recent travel or known DVT/PE risk factors but he does admit to a history of strokes in his father with unknown underlying diagnosis and an irregular heartbeat and coronary artery disease with previous stents in his mother. In the ER his EKG confirmed atrial flutter with rapid ventricular response of approximately 124 bpm treated with IV Cardizem and full-dose Lovenox complicated by chest pain with a troponin of 5 pg/mL and otherwise nonacute EKG but he was noted to have a CTA scan of the chest that was negative for PE but positive for a small pericardial effusion and he was then admitted to the PCU under observation status for ongoing care for stay that expected to be less than 2 midnights. [facility] Medical History no medical history Allergy/AdvReac Type Severity Reaction Status Date / Time No Known Allergies Allergy Verified 12/24/23 20:34 Surgical History (Updated 12/25/23 @ 01:[address] Gabriel Sanchez DO) Total knee replacement status Social History Smoking Status: Former smoker ROS ROS Narrative Review of systems: General: Patient denies fever or chills. HENT: Denies headache, denies stuffy nose, denies sore throat EYES: Denies changes in vision or discharge from eyes. Resp: Patient admits to difficulty taking a deep breath but denies cough. Cardiac: Patient admits to chest pain with a tightness sensation radiating to his back and between his shoulder blades as per HPI. GI: Denies abdominal pain, denies changes in bowel, denies nausea or vomiting. : Denies changes in urination Extremity: Denies swelling Musculoskeletal: Patient denies arthralgias or myalgias. Neuro: Patient denies headache, paresthesias or focal neurologic deficits. Heme: Denies any bleeding or bruising Skin: Denies rashes Psychiatric: No complaints voiced related to uncontrolled depression or anxiety though he does admit to increased life stress as per HPI. Endocrine: No polyuria, polydipsia or polyphagia. The rest of the 14 point ROS was negative except for positives in HPI. Vital Signs Vital Signs Vital Signs: 12/24/23 20:32 12/24/23 20:36 12/24/23 21:32 Temperature 97.8 F Temperature Source Temporal Pulse Rate 124 H 106 H Respiratory Rate 18 25 H Blood Pressure 142/84 H 141/71 H Blood Pressure Mean 103 94 Pulse Ox 97 97 Oxygen Delivery Method Room Air Room Air 12/24/23 22:00 12/24/23 23:00 Temperature Temperature Source Pulse Rate 85 105 H Respiratory Rate 16 18 Blood Pressure 135/101 H 140/84 H Blood Pressure Mean 112 102 Pulse Ox 97 98 Oxygen Delivery Method Room Air Room Air Weight Weight: 231 lb 6 oz Body Mass Index (BMI) 31.4 Physical Exam Const alert, oriented x3, no apparent distress, average body habitus and healthy appearing General Appearance: cooperative HEENT normocephalic, head/scalp atraumatic, hearing grossly normal bilaterally and moist oral mucous membranes Eyes PERRL and EOMs intact bilaterally Neck no lymphadenopathy and supple Resp normal respiratory effort, no retractions, no use of accessory muscles and clear to auscultation bilaterally Cardio regular rate and regular rhythm Cardio Narrative: Tachycardia noted at ~105 bpm GI normal to inspection, nondistended, normoactive bowel sounds, soft to palpation, non-tender and non-distended Extremity normal to inspection and full ROM Skin Skin Narrative: Patient has no evidence of abscess, rash or jaundice. Neuro oriented x3, CN's II-XII intact bilaterally, moves all extremities and no focal motor deficits Sensorium / Orientation: awake, alert, oriented to person, oriented to place and oriented to time Speech: speech normal Motor Exam: strength 5/5 throughout Psych affect normal Results Medical Records Data Attestation: I reviewed the patient's medical records Lab / Micro Data Attestation: I reviewed the patient's lab results. 12/24/23 20:45 12/24/23 20:45 Labs: Laboratory Results - last 24 hr 12/24/23 20:45: WBC 11.5 H, RBC 4.80, Hgb 13.7, Hct 43.6, MCV 90.8, MCH 28.5, M CHC 31.4 L, RDW Std Deviation 44.6 H, RDW Coeff of Josep 13.3, Plt Count 238, MPV 10.3, Immature Gran % (Auto) 0.200, Neut % (Auto) 71.3 H, Lymph % (Auto) 13.1 L, [place] % (Auto) 14.9 H, Eos % (Auto) 0.2, Baso % (Auto) 0.3, Absolute Neuts (auto) 8.2 H, Absolute Lymphs (auto) 1.51, Nucleated RBC % 0, Differential Comment SCANNED, Diff Path Review November, Sodium 138, Potassium 3.8, Chloride 105, Carbon Dioxide 27.0, Anion Gap 6, BUN 12, Creatinine 1.13, Estim Creat Clear Calc 91.41, Est GFR (MDRD) Af Amer 86, Est GFR (MDRD) Non-Af 71, BUN/Creatinine Ratio 10.6, Glucose 138 H, Calcium 9.0, Magnesium 2.1, Troponin I High Sens 3, TSH 0.76 Imaging Radiology Impression Chest X-Ray 12/24/23 20:50 IMPRESSION: Diminished inspiratory effort. No acute disease Electronically Signed: Demetrio Fernandez MD at 21:29 EDT , Chest CTA 12/24/23 21:54 IMPRESSION: 1. No evidence of pulmonary embolus. 2. Minimal bibasilar atelectasis. There is a small pericardial effusion. Electronically Signed: Issa Hampton MD at 23:20 EDT , Assessment & Plan Assessment/Plan (1) New onset atrial flutter: (2) Chest pain: QUALIFIERS: Chest pain type: unspecified Qualified Code(s): R07.9 - Chest pain, unspecified (3) Obesity (BMI 30.0-34.9): (4) Total knee replacement status: QUALIFIERS: Laterality: bilateral Qualified Code(s): Z96.653 - Presence of artificial knee joint, bilateral (5) Pericardial effusion: PLAN: Plan 1. New-onset atrial flutter with rapid ventricular response in the setting of a known family history of irregular heartbeat, CAD and strokes in his parents - Admit to PCU under observation status. Continue IV Cardizem and titrate to keep heart rate less than 100 bpm. Check echocardiogram to evaluate LVEF. Check TSH. Finally, we will consult [facility] to see this patient on rounds in the a.m. for further recommendations with help appreciated in advance. Give Tylenol as needed pain or fever. 2. Chest pain with small pericardial effusion noted on CT this admission complicating #1 - Serialize troponin. Give baby aspirin plus as needed sublingual nitroglycerin. Check Lexiscan nuclear stress test in the a.m. to evaluate for potential underlying ischemia. Check lipid profile. 3. Obesity; with BMI of 31.4 this admission - Weight loss will be recommended. TSH also pending for #1 4. History of smokeless tobacco abuse (quit ~2019) - Noted. 5. History of Right lower extremity superficial vein thrombophlebitis (2012) - Noted. 6. Osteoarthritis; s/p bilateral total knee replacements - Noted. 7. DVT prophylaxis - Patient started on full dose Lovenox for #1. Total time: Approximately 55 minutes. Charges/Coding Visit Charges Inpatient E&M: 79037 Init Hosp L2
[2023-12-24 23:36] LABS: Troponin-I HS 4 pg/mL (3.0-78.0)
--- NOTE | 2023-12-24 23:41 | ECHOCS_ITS ---
Reason For Study: Afib/Flutter Procedure This was a 2D Doppler, Color Flow transthoracic echocardiogram. Contrast injection was performed. The study was technically difficult. Exam performed portable in patient room. Left Ventricle Normal LV size. Left ventricular systolic function is normal. The estimated ejection fraction is 60 %. No regional wall motion abnormalities noted. Right Ventricle Normal RV size. Normal systolic function. Atria Normal left atrium. Normal right atrium. Mitral Valve Normal mitral valve. Tricuspid Valve Normal tricuspid valve. Aortic Valve Trisinus/trileaflet aortic valve. Pulmonic Valve Normal pulmonic valve. Great Vessels Normal aortic root. The pulmonary artery is normal size. Normal inferior vena cava. Pericardium/Pleural Circumferential effusion. There are no echocardiographic indications of cardiac tamponade. Largest dimension is 0.8 to 1.1 cm. Medication Diluted definity 2.5ml given slow IV push to enhance endocardial definition. MMode/2D Measurements & Calculations LVIDd: 4.4 cm IVSd: 0.84 cm Ao root diam: 3.6 cm LVIDs: 3.4 cm LVPWd: 0.88 cm LA dimension: 3.2 cm FS: 24.0 % LAV(MOD-bp): 47.8 ml LVAd ap4: 37.9 cm2 SV(MOD-sp4): 65.9 ml LAV(MOD-bp) Indexed: 21.2 ml/m2 LVLd ap4: 8.7 cm LAV(MOD-sp2): 53.5 ml EDV(MOD-sp4): 133.7 ml LAV(MOD-sp4): 33.9 ml EDV(sp4-el): 140.8 ml LVAs ap4: 26.7 cm2 LVLs ap4: 8.6 cm ESV(MOD-sp4): 67.8 ml ESV(sp4-el): 70.4 ml EF(MOD-sp4): 49.3 % EF(sp4-el): 50.0 % SV(sp4-el): 70.4 ml LA A4 area: 15.9 cm2 RA A4 area: 16.4 cm2 Doppler Measurements & Calculations MV E max deepti: 63.2 cm/sec MV V2 max: 69.9 cm/sec Ao V2 max: 108.6 cm/sec MV max P.0 mmHg Ao max P.8 mmHg MV V2 mean: 36.2 cm/sec Ao V2 mean: 77.0 cm/sec MV mean P.68 mmHg Ao mean P.7 mmHg MV V2 VTI: 17.6 cm Ao V2 VTI: 19.3 cm LV V1 max: 76.4 cm/sec PA V2 max: 94.7 cm/sec LV V1 max P.3 mmHg PA max PG (full): 1.7 mmHg PA V2 mean: 67.8 cm/sec PA mean PG (full): 1.0 mmHg ECHO/Echo Complete W/ Contrast Interpretation Summary Normal LV size. Left ventricular systolic function is normal. The estimated ejection fraction is 60 %. Circumferential effusion. There are no echocardiographic indications of cardiac tamponade. Largest dimension is 0.8 to 1.1 cm Ordering Physician: Gabriel Sanchez Referring Physician: John Rios M.D. Performed By: Costa Mueller RCS
[2023-12-24] MEDS: Enoxaparin 100 MG/ML Syringe SC (23:42)
[2023-12-25] VITALS (18 sets, daily range): BP systolic 85–138; BP diastolic 52–96; PULSE 66–89; RESP 16–26; TEMP 36.6–37.2; O2SAT 94–98; BMI 31.1
[2023-12-25 00:58] LABS: Cholesterol 157 mg/dL (200); High Density Lipoprotein 80 mg/dL; Phosphorus 2.3 mg/dL (2.5-4.9); Triglycerides 110 mg/dL; Very Low Density Lipoprotein 22 mg/dL (5-40)
[2023-12-25] MEDS: Diltiazem 125 MG in Dextrose 5%-Water (100mL Bag) 100 ML CONT INF (01:19)
[2023-12-25] MEDS: 0.9% Saline Lock 10 ML Syringe IV (01:20)
--- NOTE | 2023-12-25 02:40 | EKG12_ITS ---
Test Reason : ADMIT EKG AFIB Blood Pressure : / mmHG Vent. Rate : 089 BPM Atrial Rate : 000 BPM P-R Int : 000 ms QRS Dur : 076 ms QT Int : 344 ms P-R-T Axes : 000 032 039 degrees QTc Int : 418 ms Atrial fibrillation Abnormal ECG When compared with ECG of 24-DEC-2023 21:50, MANUAL COMPARISON REQUIRED, DATA IS UNCONFIRMED Confirmed by TIFF MONACO, CANDELARIA ([id number]), continuity editor AVANI WATTERS ([id number]) on 12/26/2023 9:45:33 AM Referred By: Pricila Confirmed By:CANDELARIA MATTHEW MD
[2023-12-25 03:45] LABS: Troponin-I HS 4 pg/mL (3.0-78.0)
[2023-12-25] MEDS: APIXABAN 5 MG TABLET PO (08:23)
[2023-12-25] MEDS: Metoprolol Tartrate 25 MG Tablet PO ×2 (08:23→21:28)
[2023-12-25] MEDS: Aspirin 81 MG TAB.CHEW 162 MG PO (08:23)
--- NOTE | 2023-12-25 09:56 | PN.HOSP_ITS ---
Subjective Subjective Doing well, no issues overnight. Blood pressure is a little bit low while on the Cardizem drip and is being discontinued and transition to oral medications per cardiology Objective Data Objective Data Vital Signs: Vital Signs Temp Pulse Resp BP Pulse Ox O2 Del Method 99.0 F 81 19 H 107/70 95 Room Air 12/25/23 01:00 12/25/23 09:05 12/25/23 09:05 12/25/23 09:05 12/25/23 09:05 12/25/23 09:05 Oxygen Delivery Method Room Air Weight: 229 lb 4.492 oz Body Mass Index (BMI) 31.1 Intake & Output: Intake and Output for Last 24 Hours 12/24/23 12/25/23 12/26/23 03:59 03:59 03:59 Intake Total 8.42 / 13.42 30.41 / 30.41 Balance 8.42 / 13.42 30.41 / 30.41 Lab / Micro Data 12/24/23 20:45 12/24/23 20:45 Labs: Laboratory Results - last 24 hr 12/24/23 20:45: WBC 11.5 H, RBC 4.80, Hgb 13.7, Hct 43.6, MCV 90.8, MCH 28.5, M CHC 31.4 L, RDW Std Deviation 44.6 H, RDW Coeff of Josep 13.3, Plt Count 238, MPV 10.3, Immature Gran % (Auto) 0.200, Neut % (Auto) 71.3 H, Lymph % (Auto) 13.1 L, [place] % (Auto) 14.9 H, Eos % (Auto) 0.2, Baso % (Auto) 0.3, Absolute Neuts (auto) 8.2 H, Absolute Lymphs (auto) 1.51, Nucleated RBC % 0, Differential Comment SCANNED, Diff Path Review November, Sodium 138, Potassium 3.8, Chloride 105, Carbon Dioxide 27.0, Anion Gap 6, BUN 12, Creatinine 1.13, Estim Creat Clear Calc 91.41, Est GFR (MDRD) Af Amer 86, Est GFR (MDRD) Non-Af 71, BUN/Creatinine Ratio 10.6, Glucose 138 H, Calcium 9.0, Magnesium 2.1, Troponin I High Sens 3, TSH 0.76 12/24/23 23:05: Phosphorus 2.3 L, Magnesium Cancelled, Troponin I High Sens 4, Triglycerides 110, Cholesterol 157, LDL Cholesterol 55, VLDL Cholesterol 22, HDL Cholesterol 80 12/25/23 03:10: Troponin I High Sens 4 Radiography Diagnostic Testing: Radiology Impression Chest X-Ray 12/24/23 20:50 IMPRESSION: Diminished inspiratory effort. No acute disease Electronically Signed: Demetrio Fernandez MD at 21:29 EDT , Chest CTA 12/24/23 21:54 IMPRESSION: 1. No evidence of pulmonary embolus. 2. Minimal bibasilar atelectasis. There is a small pericardial effusion. Electronically Signed: Issa Hampton MD at 23:20 EDT , Physical Exam Narrative General: Alert, Oriented x3, Cooperative, No apparent distress HEENT: Atraumatic, PERRLA, EOMI, Normocephalic Oral: Moist Mucosa Neck: Supple, No JVD Lungs: Diminished, Normal air movement, No rhonchi, No wheeze, No rales Cardiovascular: Regular rate, irregular rhythm, Normal S1, Normal S2, No murmurs Abdomen: Soft, Non Tender, Non-Distended, No Hepato-splenomegaly Extremities: No edema, Capillary Refill Less than 3 Seconds Skin: No rashes, No breakdown Musculoskeletal: No Tenderness to Palpation of Joints or Extremities Neurological: No focal neurological deficits, Motor Exam 5/5 strength throughout, Sensory exam intact to light touch and pain Psych/Mental Status: Normal Affect, Appropriate Assessment & Plan Assessment/Plan (1) New onset atrial flutter: (2) Chest pain: QUALIFIERS: Chest pain type: unspecified Qualified Code(s): R07.9 - Chest pain, unspecified (3) Obesity (BMI 30.0-34.9): (4) Total knee replacement status: QUALIFIERS: Laterality: bilateral Qualified Code(s): Z96.653 - Presence of artificial knee joint, bilateral (5) Pericardial effusion: PLAN: Plan 1. New onset A-fib/flutter with RVR ? He says that this started after night of getting drunk ? His mother has A-fib ? Will cancel the stress test per cardiology's recommendation and continue with the echocardiogram though if the echo does show wall motion abnormalities may need further testing ? Will transition to metoprolol discontinue his Cardizem ? Troponins unremarkable and he was having some chest pain but this is likely related to the tachycardia and not any significant underlying coronary artery disease though we will proceed with an echo ? Will start him on Eliquis per cardiology's recommendation, [id number] of 0 DVT: Eliquis Charges/Coding Visit Charges Inpatient E&M: 36222 Subs Hosp L2
--- NOTE | 2023-12-25 10:35 | PCM.CONS.C ---
Assessment & Plan Assessment/Plan (1) New onset atrial flutter: PLAN: Patient presents with new onset atrial flutter. The etiology is unclear. This may be related to a holiday heart syndrome kind of patent. Alternatively a mild pericarditis could also have caused this. Will recommend an echocardiogram to assess ventricular function and exclude any significant pericardial effusion Beta-sherrie for now for rate control Attempt to discontinue the intravenous diltiazem Depending on the results further recommendations will be made (2) Chest pain: QUALIFIERS: Chest pain type: unspecified Qualified Code(s): R07.9 - Chest pain, unspecified PLAN: His chest discomfort appears to be non coronary in origin Cardiac enzymes are normal but I would not recommend any stress testing I will obtain a high-sensitivity C-reactive protein Await echocardiographic results. HPI Consult Data Date of Consult: 12/25/23 HPI Narrative HPI Narrative: MIESHA TAPIA, is a 58 M who presents with a history of superficial thrombophlebitis who presented to the emergency room complaining of mild chest discomfort which he said was worse when he took a deep breath. He was also noted between his shoulder blades. He has had no medical problems though he does admit that his mother was recently diagnosed with COVID-19 and this is increasing of his stress. He did have a weekend where he drank more alcohol than usual. He presented to the emergency room and he was noted to be in atrial flutter with a rapid ventricular response rate. Cardiac enzymes were noted to be normal. He did have a chest CT which was negative for pulmonary embolism but he did have a small pericardial effusion. He currently is feeling well. [facility] Medical History no medical history Allergy/AdvReac Type Severity Reaction Status Date / Time No Known Allergies Allergy Verified 12/24/23 20:34 Surgical History Total knee replacement status Social History Smoking Status: Former smoker ROS Constitutional Constitutional: Denies fever(s) or weight loss Eyes Eyes: Reports systems reviewed and no addt'l complaints, except as documented ENT HEENT: Reports systems reviewed and no addt'l complaints, except as documented Cardiovascular Cardiovascular: Denies chest pain at rest, chest pain with activity, dyspnea at rest, dyspnea on exertion, edema, palpitations or paroxysmal nocturnal dyspnea Respiratory/Chest Respiratory/Chest: Reports other Details: Chest discomfort when he takes in a deep breath ; Denies dyspnea on exertion, productive cough, shortness of breath at rest or shortness of breath with exertion Gastrointestinal Gastrointestinal: Denies change in bowel habits, nausea, vomiting or weight changes Genitourinary Genitourinary: Denies difficulty urinating Musculoskeletal Musculoskeletal: Denies joint stiffness or muscle weakness Integumentary Integumentary: Denies lesions Neurologic Neurologic: Denies dizziness or syncope Psychiatric Psychiatric: Denies anxiety Endocrine Endocrinology: Denies excessive sweating or fatigue Hematologic/Lymphatic Hematologic/Lymphatic: Denies anemia Allergic/Immunologic Allergic/Immunologic: Denies seasonal rhinorrhea Physical Exam Const alert, oriented x3 and no apparent distress General Appearance: cooperative HEENT hearing grossly normal bilaterally Head and Scalp: atraumatic Eyes EOMs intact bilaterally Neck General: normal visual inspection Chest inspection of chest normal and palpation of chest normal Resp normal respiratory effort Auscultation: clear to auscultation bilaterally Cardio S1 normal heart sound and S2 normal heart sound Cardio Narrative: No pericardial friction rub is noted. Jugular Venous Distention: JVD Rhythm: abnormal rhythm irregularly irregular GI normal to inspection, nondistended, normoactive bowel sounds Extremity normal capillary refill and no pedal edema Peripheral Pulses: Yes pulses 2+ throughout and femoral pulses present Skin no rashes or lesions noted Neuro oriented x3 and CN's II-XII intact bilaterally Psych Appearance: grossly normal and appropriate Risk Stratification Risk Stratification Applicable: No Objective Data Vital Signs: Vital Signs Temp Pulse Resp BP Pulse Ox O2 Del Method 99.0 F 81 19 H 107/70 95 Room Air 12/25/23 01:00 12/25/23 09:05 12/25/23 09:05 12/25/23 09:05 12/25/23 09:05 12/25/23 09:05 Oxygen Delivery Method Room Air Weight: 229 lb 4.492 oz Body Mass Index (BMI) 31.1 Intake & Output: Intake and Output for Last 24 Hours 12/23/23 12/24/23 12/25/23 23:59 23:59 23:59 Intake Total 38.83 / 38.83 Balance 38.83 / 38.83 Lab / Micro Data 12/24/23 20:45 12/24/23 20:45 Labs: Laboratory Results - last 24 hr 12/24/23 20:45: WBC 11.5 H, RBC 4.80, Hgb 13.7, Hct 43.6, MCV 90.8, MCH 28.5, MCHC 31.4 L, RDW Std Deviation 44.6 H, RDW Coeff of Josep 13.3, Plt Count 238, MPV 10.3, Immature Gran % (Auto) 0.200, Neut % (Auto) 71.3 H, Lymph % (Auto) 13.1 L, [place] % (Auto) 14.9 H, Eos % (Auto) 0.2, Baso % (Auto) 0.3, Absolute Neuts (auto) 8.2 H, Absolute Lymphs (auto) 1.51, Nucleated RBC % 0, Differential Comment SCANNED, Diff Path Review November, Sodium 138, Potassium 3.8, Chloride 105, Carbon Dioxide 27.0, Anion Gap 6, BUN 12, Creatinine 1.13, Estim Creat Clear Calc 91.41, Est GFR (MDRD) Af Amer 86, Est GFR (MDRD) Non-Af 71, BUN/Creatinine Ratio 10.6, Glucose 138 H, Calcium 9.0, Magnesium 2.1, Troponin I High Sens 3, TSH 0.76 12/24/23 23:05: Phosphorus 2.3 L, Magnesium Cancelled, Troponin I High Sens 4, Triglycerides 110, Cholesterol 157, LDL Cholesterol 55, VLDL Cholesterol 22, HDL Cholesterol 80 12/25/23 03:10: Troponin I High Sens 4 Cardiology Labs/Tests 12/24/23 20:45: WBC 11.5 H, RBC 4.80, Hgb 13.7, Hct 43.6, MCV 90.8, MCH 28.5, MCHC 31.4 L, Plt Count 238, MPV 10.3, Immature Gran % (Auto) 0.200, Neut % (Auto) 71.3 H, Lymph % (Auto) 13.1 L, [place] % (Auto) 14.9 H, Eos % (Auto) 0.2, Baso % (Auto) 0.3, Absolute Neuts (auto) 8.2 H, Nucleated RBC % 0, Sodium 138, Potassium 3.8, Chloride 105, Carbon Dioxide 27.0, Anion Gap 6, BUN 12, Creatinine 1.13, Est GFR (MDRD) Af Amer 86, Est GFR (MDRD) Non-Af 71, BUN/Creatinine Ratio 10.6, Glucose 138 H, Calcium 9.0, Magnesium 2.1 12/24/23 23:05: Phosphorus 2.3 L, Magnesium Cancelled, Triglycerides 110, Cholesterol 157, LDL Cholesterol 55, VLDL Cholesterol 22, HDL Cholesterol 80 Rhythm: EKG: ECHO: Stress Test: Cardiac Cath: PCI: CT Surgery: Holter monitor: EPS: PPM: CXR: Chest CT Scan: Radiography Diagnostic Testing: Radiology Impression Chest X-Ray 12/24/23 20:50 IMPRESSION: Diminished inspiratory effort. No acute disease Electronically Signed: Demetrio Fernandez MD at 21:29 EDT , Chest CTA 12/24/23 21:54 IMPRESSION: 1. No evidence of pulmonary embolus. 2. Minimal bibasilar atelectasis. There is a small pericardial effusion. Electronically Signed: Issa Hampton MD at 23:20 EDT ,
--- NOTE | 2023-12-25 11:34 | CASEMGMT ---
ADVANCE DIRECTIVE VALIDATION Received notice of advance directive validation. Patient answered upon admission that does not have any directives in placed; also declined wanting any further information on this topic. No further needs requested or indicated for this topic. -DES Vasquez
--- NOTE | 2023-12-25 11:56 | CHAPLAIN ---
Type of Pastoral Visit _x__ Initial Visit ___ Follow-up Visit ___ On-call Visit ___ General Patient Visit ___ Spiritual Assessment ___ Family Conference ___ Bereavement ___ Rapid Response ___ Code Blue ___ Other (describe below) Pastoral Care Referral From _x__ Patient ___ Family ___ Nurse ___ Physician ___ Puttying And Calking Supervisor ___ Business Office Coordinator ___ Other (describe below) Sacrament/Intervention _x__ Active listening ___ Anointing ___ Cheondoism ___ Bereavement ___ Communion _x__ Shelia exploration ___ _x__ Life review _x__ Prayer ___ Reconciliation ___ Sacrament of Sick ___ Supportive presence ___ Wedding ___ Other (describe below) Pastoral Comments patient was napping but awoke easily to his name; pt admits that sleeping has been limited in the hospital; however pt is welcoming of visit and speaks of some relief at knowing now what was happening with his heart rate; pt also speaks of his concerns for parents who are declining in health and in-laws in a similar state which brings on extra work and concerns; discussion on what brings him peace and stephanie, the patient was able to speak to this appropriately; when asked about shelia the pt explained a new approach that has been encouraged by his son to connect with God and a shelia community; pt states that this change has been a good one and that he hopes to continue with in the future; pt welcomes presence and prayers for his support today
[2023-12-25] MEDS: Pantoprazole Sodium 20 MG Tablet PO (12:58)
[2023-12-25] MEDS: Indomethacin 25 MG Capsule PO ×2 (12:58→16:53)
--- NOTE | 2023-12-25 13:22 | CASEMGMT ---
EVAN CHU Assessment Face to Face with patient for initial transition planning/care coordination assessment. EVAN CHU introduced self and role at [facility], pt voices understanding. Pt is A&Ox4 and is resting comfortably in bed and is calm. Care providers, pharmacy, and demographics verified. Admitting dx: New Onset A-Flutter with RVR and CP PCP: John Rios Specialists: Pt is being seen by Dr. Noel here Preferred [facility]acy: [facility] Insurance: [employer] Prescription Benefit:Yes LNOK: Peyton Morales (W) Living Arrangements: Pt lives with his in a single story home with 3 steps to enter ADLs/IADLs: Ind Transportation: Self, DME: [employer]. Pt has a FWW and cane but does not use HHC/SNF: denies Pt?s goal: Home Plan: Pt states that he feels safe discharging home with no additional needs once he is medically ready. Pt denies the need for HHC or OP therapy. CM to follow for new Anticoagulant Rx. CM to follow for safe DC from [facility]. Chelita Cochran RN, CM
[2023-12-25 14:51] LABS: Pathologist Review Reviewed
[2023-12-25] MEDS: Colchicine 0.6 MG TABLET PO (21:29)
[2023-12-26 04:19] VITALS: BP 117/90; PULSE 73; RESP 18; TEMP 36.2; O2SAT 96
--- NOTE | 2023-12-26 07:42 | PCM.DC ---
Discharge Instructions Diet Discharge Diet: Low fat / Low cholesterol Activity Discharge Activity: Return to Normal Activity Dressing / Incision Call your doctor if you observe: Fever of 101 or Higher, Shortness of breath, Dizziness, Fainting spells, Swelling in the ankles, Chest pain and Increased palpitations (irregular heartbeat) Follow Up Care Test Results: Test results from this visit will be discussed in further detail at your follow-up appointment, if applicable. Discharge Plan Admission Admit Date/Time: 12/24/23 23:37 Attending Provider: Miguel Angel Blackman Primary Care Provider: John Rios Consulting Providers: Gabriel Sancehz; Marylu Raya; Sudhir Mclean; Radha Hardy; Roberto Elizabeth; Delbert Noel; Dean Zhao; Ana Du; Tyson Cross; Brenna Archer; Salvatore Dupree; Brando Sepulveda NP; Marylu Mason NP; Kasie Keller Discharge Orders/Prescriptions Prescriptions: New aspirin 81 mg Tablet,Chewable 162 mg PO DAILYCM 30 Days Qty: 60 0RF colchicine 0.6 mg Capsule 0.6 mg PO BID 30 Days Qty: 60 0RF pantoprazole 20 mg Tablet,Delayed Release (Dr/Ec) 20 mg PO DAILY 30 Days Qty: 30 0RF indomethacin 25 mg Capsule 25 mg PO TIDCM 30 Days Qty: 90 0RF metoprolol tartrate 25 mg Tablet 25 mg PO BID 30 Days Qty: 60 2RF Referrals / Follow Up: John Rios MD [Primary Care Provider] - Within 1 Week Brando Sepulveda NP, OVERNIGHT CASHIER-C [Med Staff - [facility] Prof] - Within 2 Weeks Disposition Disposition (needs filled in before D/C Order can be placed): Home, Self Care
[2023-12-26 08:38] VITALS: BP 113/78; PULSE 82; RESP 18; TEMP 36.6; O2SAT 98
[2023-12-26 08:41] VITALS: PULSE 82
[2023-12-26] MEDS: Metoprolol Tartrate 25 MG Tablet PO (08:41)
[2023-12-26] MEDS: Colchicine 0.6 MG TABLET PO (08:41)
[2023-12-26] MEDS: Pantoprazole Sodium 20 MG Tablet PO (08:41)
[2023-12-26] MEDS: Indomethacin 25 MG Capsule PO (08:41)
[2023-12-26] MEDS: Aspirin 81 MG TAB.CHEW 162 MG PO (08:41)
--- NOTE | 2023-12-26 09:42 | PCM.DC.SUM ---
Providers Date of Admission: 12/24/23 Primary Care Physician: Dr. John Rios MD Consultations 12/25/23 00:26 Consult: Cardiology Routine Consulting Provider: [facility] Reason for Consult: New onset atrial flutter and chest pain. EMERGENT Consult: No MD Notified: Yes Date Notified: 12/25/23 Time Notified: 06:42 Method of Notification: Text Method of Consult:: In-Person Reason For Visit: NEW ONSET ATRIAL FLUTTER WITH RVR AND CHEST PAIN. Diagnosis Discharge Diagnosis (1) New onset atrial flutter: Status: Acute Code(s): I48.92 - Unspecified atrial flutter (2) Chest pain: Status: Acute Code(s): R07.9 - Chest pain, unspecified Qualifiers: Chest pain type: unspecified Qualified Code(s): R07.9 - Chest pain, unspecified Medications at Discharge Home Medications aspirin 81 mg chewable tablet 162 mg (2 x 81 mg) PO DAILYCM 30 days #60 tabs 12/26/23 colchicine 0.6 mg capsule 0.6 mg PO BID 30 days #60 caps 12/26/23 indomethacin 25 mg capsule 25 mg PO TIDCM 30 days #90 caps 12/26/23 metoprolol tartrate 25 mg tablet 25 mg PO BID 30 days #60 tabs 12/26/23 pantoprazole 20 mg tablet,delayed release 20 mg PO DAILY 30 days #30 tabs 12/26/23 Hospital Course Operations None Procedures 2-D Echocardiogram Summary of Care Provided Minutes Spent on Discharge: 35 Hospital Course: Per HPI: MIESHA MORALES, is a 58 M with a past medical history of previous smokeless tobacco abuse (quit ~2019), obesity; with BMI of 31.4 this admission, history of Right lower extremity superficial vein thrombophlebitis (2012) and osteoarthritis; s/p bilateral TKR's who presents to [facility] ER complaining of chest pain. Mr. Morales reports his symptoms began yesterday morning when he woke up from sleep with that sensation of tightness in his chest that was anterior and radiated into his back. He also noted pain in between his shoulder blades that was made worse when taking a deep breath feeling like he cannot finish the breath. He works out on a very regular basis aerobically and anaerobically 6 days/week routinely though he admits to a relatively poor diet. He currently states he has no medical problems and takes no medications or dietary supplements. He does admit his mother has been recently diagnosed with COVID-19 and he has had increased levels of stress but he denies fever, chills, nausea, vomiting, snoring, recent travel or known DVT/PE risk factors but he does admit to a history of strokes in his father with unknown underlying diagnosis and an irregular heartbeat and coronary artery disease with previous stents in his mother. In the ER his EKG confirmed atrial flutter with rapid ventricular response of approximately 124 bpm treated with IV Cardizem and full-dose Lovenox complicated by chest pain with a troponin of 5 pg/mL and otherwise nonacute EKG but he was noted to have a CTA scan of the chest that was negative for PE but positive for a small pericardial effusion and he was then admitted to the PCU under observation status for ongoing care for stay that expected to be less than 2 midnights. Hospital Course: 1. New onset atrial A-fib/flutter with pericardial effusion consistent with pericarditis?58-year-old male presents to the hospital with slight chest pain as well as new onset atrial flutter. He was found to have a pericardial effusion consistent with pericarditis which is likely what instigated his atrial flutter as well as the fact that he was drinking heavily the night before. He remains in A-fib, but his rate is controlled. Cardiology evaluated him and in discussion today and felt that he would be stable for discharge home on his metoprolol at 25 mg p.o. twice daily. Will also continue with colchicine and indomethacin for 30 days, the colchicine will be 8.6 mg p.o. twice daily and the indomethacin will be 25 mg p.o. 3 times daily. Given the A-fib and flutter we will also continue with aspirin. Since he will be on the colchicine and indomethacin also provide him with a PPI on discharge for 30 days. I do recommend outpatient follow-up with his PCP in 3 to 5 days as well as cardiology in 2 weeks. I discussed with him the plan for discharge and he expressed understanding of the risk benefits of going home and would like to go home today. He did have an echocardiogram during this admission with an EF of 60% and no signs of cardiac tamponade with a circumferential pericardial effusion with largest dimension of around 1 cm. Physical Exam Narrative General: Alert, Oriented x3, Cooperative, No apparent distress HEENT: Atraumatic, PERRLA, EOMI, Normocephalic Oral: Moist Mucosa Neck: Supple, No JVD Lungs: Diminished, Normal air movement, No rhonchi, No wheeze, No rales Cardiovascular: Regular rate, irregular rhythm, Normal S1, Normal S2, No murmurs Abdomen: Soft, Non Tender, Non-Distended, No Hepato-splenomegaly Extremities: No edema, Capillary Refill Less than 3 Seconds Skin: No rashes, No breakdown Musculoskeletal: No Tenderness to Palpation of Joints or Extremities Neurological: No focal neurological deficits, Motor Exam 5/5 strength throughout, Sensory exam intact to light touch and pain Psych/Mental Status: Normal Affect, Appropriate Weight / BMI Weight Weight: 229 lb 4.492 oz Body Mass Index (BMI) 31.1 ABG / Lab / Microbiology Data 12/24/23 20:45 12/24/23 20:45 Laboratory: Laboratory Results - last 24 hr 12/24/23 20:45: Diff Path Review Reviewed 12/25/23 03:10: C-React Prot High Sens 179.00 H Radiography Diagnostic Testing: Radiology Impression Echocardiogram 12/24/23 23:41 Interpretation Summary Normal LV size. Left ventricular systolic function is normal. The estimated ejection fraction is 60 %. Circumferential effusion. There are no echocardiographic indications of cardiac tamponade. Largest dimension is 0.8 to 1.1 cm Ordering Physician: Gabriel Sanchez Referring Physician: John Rios M.D. Performed By: Costa Mueller RCS D/C Instructions Discharge Diet: Low fat / Low cholesterol Call your doctor if you observe: Fever of 101 or Higher, Shortness of breath, Dizziness, Fainting spells, Swelling in the ankles, Chest pain and Increased palpitations (irregular heartbeat) Meaningful Use Info Meaningful Use Meaningful Use Diagnoses (Choose all that apply): None applicable Ischemic Stroke Statin Dosing Therapy Reference: STATIN DOSE THERAPY REFERENCE: * Patients > 75 years receive moderate or high dose statin therapy. * Patients 75 years or YOUNGER should receive HIGH intensity statin dose unless contraindicated. You will be required to document reason for non-treatment if statin daily dose does not meet guidelines. HIGH DOSE STATIN THERAPY DAILY Atorvastatin > than or = to 40 mg Rosuvastatin > than or = to 20 mg Amlodipine + Atorvastatin > than or = to 2.5/40 mg Ezetimibe + Simvastatin 10/80 mg Simvastatin 80mg Discharge Plan Admission Admit Date/Time: 12/24/23 23:37 Attending Provider: Miguel Angel Blackman Primary Care Provider: John Rios Consulting Providers: Gabriel Sanchez; Marylu Raya; Sudhir Mclean; Radha Hardy; Roberto Elizabeth; Delbert Noel; Dean Zhao; Ana Du; Tyson Cross; Brenna Archer; Salvatore Dupree; Brando Sepulveda NP; Marylu Mason NP; Kasie Keller PA Discharge Orders/Prescriptions Prescriptions: New aspirin 81 mg Tablet,Chewable 162 mg PO DAILYCM 30 Days Qty: 60 0RF colchicine 0.6 mg Capsule 0.6 mg PO BID 30 Days Qty: 60 0RF pantoprazole 20 mg Tablet,Delayed Release (Dr/Ec) 20 mg PO DAILY 30 Days Qty: 30 0RF indomethacin 25 mg Capsule 25 mg PO TIDCM 30 Days Qty: 90 0RF metoprolol tartrate 25 mg Tablet 25 mg PO BID 30 Days Qty: 60 2RF Referrals / Follow Up: John Rios MD [Primary Care Provider] - Within 1 Week Brando Sepulveda NP, PRESS OPERATOR ASSISTANT-C [Med Staff - [facility] Prof] - Within 2 Weeks Disposition Disposition (needs filled in before D/C Order can be placed): Home, Self Care Charges/Coding Visit Charges Inpatient E&M: 25886 Disch Hosp >30min
--- NOTE | 2023-12-26 09:57 | CASEMGMT ---
Patient has order for discharge. RN CM in to discuss needs at discharge, at bedside. Patient and deny needs or help at discharge. Patient has no further questions or concerns.
--- NOTE | 2023-12-26 11:00 | PHA.DC.MR.R ---
Pharmacy [place] Med Reconciliation Pharmacy Service has performed discharge medication reconciliation for this patient. Medication education papers prepared, patient discharged when counseling was attempted. The patient's discharge medication list was reviewed for discrepancies and discrepancies were resolved. Medications at Discharge Home Medications aspirin 81 mg chewable tablet 162 mg (2 x 81 mg) PO DAILYCM 30 days #60 tabs 12/26/23 colchicine 0.6 mg capsule 0.6 mg PO BID 30 days #60 caps 12/26/23 indomethacin 25 mg capsule 25 mg PO TIDCM 30 days #90 caps 12/26/23 metoprolol tartrate 25 mg tablet 25 mg PO BID 30 days #60 tabs 12/26/23 pantoprazole 20 mg tablet,delayed release 20 mg PO DAILY 30 days #30 tabs 12/26/23
== END 2023-12-26 07:44 | disposition home or self-care (01) ==
LOC: ED 23:37 → PCU 12-25 00:52
PROVIDERS: Internal Medicine Cardiovascular Disease; Admitting Provider Internal Medicine; Emergency Provider Emergency Medicine; PCP Internal Medicine; Visit Provider Family Medicine
DX: I48.92 Unspecified atrial flutter (principal); I48.91 Unspecified atrial fibrillation; Z87.891 Personal history of nicotine dependence; I31.39 Other pericardial effusion (noninflammatory); E66.9 Obesity, unspecified; Z68.31 Body mass index [BMI] 31.0-31.9, adult; Z20.822 Contact with and (suspected) exposure to COVID-19; Z96.659 Presence of unspecified artificial knee joint; M19.90 Unspecified osteoarthritis, unspecified site; R06.02 Shortness of breath
CPT/HCPCS: 71045; 71275; 80048; 80061; 83735; 84100; 84443; 84484; 85025; 86141; 93005; 93306; 96365; 96366; 96372; 96376; 99221; 99285; Q9957; Q9967; A4216; C8929; G0378

== ENCOUNTER → 2024-02-18 | Outpatient (CLI) | payer BC, SELFPAY ==
--- NOTE | 2024-02-18 07:56 | ECHOL_ITS ---
Reason For Study: PERICARDIAL EFFUSION Procedure This was a limited 2D transthoracic echocardiogram. Exam performed in department. Left Ventricle Normal LV size. Left ventricular systolic function is normal. The left ventricular ejection fraction is 60 %. No regional wall motion abnormalities noted. Right Ventricle Normal RV size. Normal systolic function. Pericardium/Pleural No pericardial effusion. MMode/2D Measurements & Calculations LVIDd: 5.1 cm IVSd: 0.98 cm LVOT diam: 2.1 cm LVIDs: 2.8 cm LVPWd: 0.92 cm LVOT area: 3.3 cm2 FS: 44.0 % Ao root diam: 3.7 cm LAV(MOD-bp): 40.7 ml LVAd ap4: 33.0 cm2 LAV(MOD-bp) Indexed: 18.2 ml/m2 LVLd ap4: 8.9 cm LAV(MOD-sp2): 60.6 ml EDV(MOD-sp4): 101.3 ml LAV(MOD-sp4): 26.6 ml EDV(sp4-el): 103.5 ml LVAs ap4: 19.1 cm2 LVLs ap4: 7.5 cm ESV(MOD-sp4): 43.0 ml ESV(sp4-el): 41.2 ml EF(MOD-sp4): 57.6 % EF(sp4-el): 60.2 % SV(MOD-sp4): 58.3 ml SV(MOD-sp2): 62.0 ml LVAd ap2: 33.1 cm2 LVLd ap2: 9.1 cm EDV(MOD-sp2): 103.1 ml EDV(sp2-el): 101.4 ml LVAs ap2: 19.6 cm2 LVLs ap2: 8.1 cm ESV(MOD-sp2): 41.1 ml ESV(sp2-el): 40.3 ml EF(MOD-sp2): 60.1 % SV(sp4-el): 62.4 ml LA dimension(2D): 3.7 cm LA A4 area: 12.6 cm2 TAPSE: 2.0 cm RA A4 area: 13.2 cm2 Time Measurements MV dec time: 0.30 sec Doppler Measurements & Calculations MV E max kt: 64.5 cm/sec Lat Peak E' Kt: 11.9 cm/sec Med Peak E' Kt: 10.3 cm/sec MV A max kt: 58.5 cm/sec E/E' lat: 5.4 E/E' med: 6.3 MV E/A: 1.1 MV dec slope: 214.1 cm/sec2 ECHO/Echo, Limited Study Interpretation Summary Normal LV size. Left ventricular systolic function is normal. The left ventricular ejection fraction is 60 %. No pericardial effusion. Ordering Physician: Brando Sepulveda Referring Physician: John Rios M.D. Performed By: Annette Hector RDCS
== END | disposition home or self-care (01) ==
LOC: CVS 07:54
PROVIDERS: PCP Internal Medicine; Referring Provider Nurse Practitioner Family; Visit Provider Nurse Practitioner Family
DX: I31.39 Other pericardial effusion (noninflammatory) (principal)
CPT/HCPCS: 93308

== ENCOUNTER 2024-03-21 23:17 | Emergency (ER) | payer BC, SELFPAY ==
[2024-03-21 23:17] VITALS: BP 133/63; PULSE 95; RESP 14; TEMP 36.6; O2SAT 98; BMI 31.1
--- NOTE | 2024-03-21 23:39 | EKG12_ITS ---
Test Reason : CP Blood Pressure : / mmHG Vent. Rate : 095 BPM Atrial Rate : 000 BPM P-R Int : 000 ms QRS Dur : 084 ms QT Int : 356 ms P-R-T Axes : 000 002 -13 degrees QTc Int : 447 ms Atrial fibrillation Abnormal ECG Confirmed by Tyson Cross ([id number]), pictures editor VINNY ADAMSON ([id number]) on 03/24/2024 11:23:27 AM Referred By: JAIMIE Confirmed By:Tyson Cross
[2024-03-21 23:46] LABS: Absolute Lymphocyte Count 2.12 X10^3/uL (0.83-4.51); Absolute Neutrophil Count 3.5 X10^3/uL (2.0-7.7); Basophil# 0.06 X10^3/uL; Basophil% 0.9 % (0-1); Eosinophil# 0.11 X10^3/uL; Eosinophils% 1.7 % (0-5); Hematocrit 42.2 % (40-54); Hemoglobin 13.3 g/dL (13.0-16.5); Lymphocyte # 2.12 X10^3/ul (0.83-4.51); Lymphocyte % 32.1 % (19-41); Mean Corp Hgb Conc 31.5 g/dL (32-36); Mean Corpuscular Hgb 28.8 pg (27.0-32.0); Mean Corpuscular Volume 91.3 fL (80-94); Mean Platelet Vol. 10.2 fl (6.2-12.0); Monocyte# 0.81 X10^3/uL; Monocyte% 12.3 % (0-10); NRBC Flagged by Analyzer 0 % (0-5); Neutrophil # 3.48 X10^3/uL (2.7-7.7); Neutrophil % 52.5 % (47-70); Platelet Count 313 K/mm3 (150-450); RBC Distribution Width CV 13.1 % (11.6-14.6); RBC Distribution Width SD 43.7 fl (35.1-43.9); Red Blood Count 4.62 M/mm3 (4.6-6.2); White Blood Count 6.6 K/mm3 (4.4-11.0)
[2024-03-21] MEDS: dilTIAZem 25 MG/5 ML Vial 20 MG IV BOLUS (23:47)
[2024-03-21] MEDS: 0.9% Normal Saline (1000mL) 1,000 ML 999 ML IV (23:47)
[2024-03-21 23:54] LABS: International Normalized Ratio 1.1; Prothrombin Time (Protime)PT. 13.7 SECONDS (11.7-14.9)
[2024-03-21 23:55] LABS: Partial Thromboplast Time 34.8 Seconds (24.1-36.2)
[2024-03-22 00:17] VITALS: BP 129/67; PULSE 67; RESP 18; O2SAT 98
[2024-03-22 00:21] LABS: Anion Gap 5 (5-15); BUN 20 mg/dL (7-18); BUN/Creat Ratio 16.5 RATIO (10-20); Calcium,Total 9.3 mg/dL (8.5-10.1); Chloride 106 mmol/L (98-107); Creatinine, Serum 1.21 mg/dL (0.70-1.30); EST Glomerular Filtration Rate 66 mL/min (>60); Est Glom Filt Rate - Afr Amer 80 mL/min (>60); Estimated Creatinine Clearance 85.13 ml/min; Glucose 98 mg/dL (74-106); Magnesium 2.2 mg/dL (1.6-2.6); Potassium 3.8 mmol/L (3.5-5.1); Sodium Level 141 mmol/L (136-145)
--- NOTE | 2024-03-22 00:27 | EDS_ITS ---
HPI History of Present Illness Chief Complaint: Palpitations Informant: patient and spouse/S.O. Narrative Narrative: Patient is a 58-year-old male with past medical history of A-fib/atrial flutter with pericardial effusion of December of this year. He states he was on medication for it for 1 month but he did not return back into the abnormal heart rhythm and therefore was taken off of it. He states that he was sitting around watching TV roughly 30 minutes prior to arrival when he felt his heart flip. He states that there is been no excessive stimulant use or illicit drug use. He reports because of his previous history and need for admission he was concerned and therefore comes in for evaluation [facility] Medical History Chest pain New onset atrial flutter Obesity (BMI 30.0-34.9) Pericardial effusion Home Medications ?Medication ?Instructions ?Recorded ?Last Taken ?Type metoprolol tartrate 25 mg tablet 25 mg PO BID 30 days #60 tabs 03/22/24 Unknown Rx Allergy/AdvReac Type Severity Reaction Status Date / Time No Known Allergies Allergy Verified 03/21/24 23:20 Family History Mother Cancer Atrial fibrillation Father Atrial fibrillation Surgical History Total knee replacement status Social History Smoking Status: Never smoker alcohol intake: current substance use type: does not use caffeine: Yes ROS ROS ED Constitutional Constitutional ED: Denies chills or fever(s) Eyes Eyes: Denies change in vision ENT ENT ED: Denies sore throat Cardiovascular Cardiovascular: Reports palpitations and racing heartbeat; Denies chest pain Respiratory/Chest Respiratory/Chest: Denies cough or dyspnea Gastrointestinal Gastrointestinal: Denies abdominal pain, diarrhea, nausea or vomiting Genitourinary Genitourinary ED: Denies dysuria Musculoskeletal Musculoskeletal: Denies myalgias Integumentary Denies rash Neurologic Neurologic: Denies headache(s) Hematologic/Lymphatic Hematologic/Lymphatic: Denies easy bleeding or easy bruising EXAM Physical Exam Const Vital Signs: 03/21/24 23:17 03/21/24 23:21 03/22/24 00:17 Temperature 98 F Temperature Source Oral Pulse Rate 95 67 Respiratory Rate 14 18 Respiratory Effort Normal Blood Pressure 133/63 H 129/67 H Blood Pressure Mean 86 87 Pulse Ox 98 98 Oxygen Delivery Method Room Air Room Air 03/22/24 01:00 03/22/24 01:29 Temperature 98.6 F Temperature Source Pulse Rate 70 62 Respiratory Rate 17 16 Respiratory Effort Blood Pressure 117/72 117/62 Blood Pressure Mean 87 80 Pulse Ox 98 99 Oxygen Delivery Method Room Air Positive well nourished and well developed General Appearance ED: well developed; Negative for pallor HEENT HEENT Narrative: Normocephalic atraumatic Eyes PERRL and EOMs intact bilaterally General Eye ED: Negative for scleral icterus Neck supple and no JVD Chest Wall palpation of chest normal Resp normal respiratory effort and clear to auscultation bilaterally Cardio regular rate Rate: other Other Details: Irregularly irregular rhythm with regular rate consistent with history of atrial fibrillation GI normal to inspection, nondistended, normoactive bowel sounds, non-tender, non- distended and no masses Auscultation: normoactive bowel sounds Palpation: soft Extremity normal to inspection Extremity Narrative: No asymmetric edema no pitting edema negative Homans' sign bilaterally Neuro oriented x3, CN's II-XII intact bilaterally and no sensory deficits noted Sensorium / Orientation: alert Motor Exam: strength 5/5 throughout Psych mental status grossly normal Skin no rashes or lesions noted General Skin Exam: Negative for jaundice or pallor MDM MDM MDM Narrative Medical decision making narrative: Patient arrived to the ER in atrial flutter but was technically at a normal rate of 95. He does have a past medical history of this which she was admitted to the hospital for in December of this year. The chart review reveals that cardiology felt his a flutter was related to pericarditis/pericardial effusion. And therefore he was taken off metoprolol as he had been in normal sinus rhythm in the pericarditis/pericardial effusion had resolved. I have low concern for repeat pericarditis/pericardial effusion or DVT/PE as the patient does not have chest pain or shortness of breath. There is potential that his abnormal heart rhythm is related to acute blood loss anemia acute kidney injury electrolyte derangement or thyroid disorder. Therefore basic labs were checked. Labs revealed no clinically significant finding. A bedside ultrasound performed myself revealed no signs of pericardial effusion which correlates with his formal ultrasound from approximately 1 month ago. The patient was given IV hydration and 20 mg bolus of Cardizem and his rate did slow down to approximately 70 bpm but despite the rate reduction there was no spontaneous conversion to normal sinus rhythm. The case was discussed with cardiology on- call Dr. Cross. He recommends starting the patient back on his metoprolol tartrate at 25 mg twice a day for rate control. He agrees that with his low CHADS2 score there is no need for anticoagulation other than a baby aspirin daily. Therefore at this time the patient is not in atrial flutter with rapid ventricular response he is hemodynamically stable he has no electrolyte abnormality or need for blood transfusion there is no overt findings to suggest systemic infection as the cause and he does not have return of pericarditis or pericardial effusion. Therefore he is safe for discharge and can follow-up with cardiology on an outpatient basis History & Record Review Discussion w/independent historian: Patient and Significant other Lab Data Attestation: I reviewed the patient's lab results. Labs: Laboratory Results - last 24 hr 03/21/24 23:20 WBC 6.6 RBC 4.62 Hgb 13.3 Hct 42.2 MCV 91.3 MCH 28.8 MCHC 31.5 L RDW Std Deviation 43.7 RDW Coeff of Josep 13.1 Plt Count 313 MPV 10.2 Immature Gran % (Auto) 0.500 Neut % (Auto) 52.5 Lymph % (Auto) 32.1 Glenn % (Auto) 12.3 H Eos % (Auto) 1.7 Baso % (Auto) 0.9 Absolute Neuts (auto) 3.5 Absolute Lymphs (auto) 2.12 Nucleated RBC % 0 PT 13.7 INR 1.1 APTT 34.8 Sodium 141 Potassium 3.8 Chloride 106 Carbon Dioxide 30.0 Anion Gap 5 BUN 20 H Creatinine 1.21 Estim Creat Clear Calc 85.13 Est GFR (MDRD) Af Amer 80 Est GFR (MDRD) Non-Af 66 BUN/Creatinine Ratio 16.5 Glucose 98 Calcium 9.3 Magnesium 2.2 TSH 1.790 Management Discussion w/another healthcare provider: Injection Specialist Discharge Plan Triage Chief Complaint: Palpitations ED Provider: Cornell Campo Dx/Rx/DC Orders Clinical Impression: Atrial flutter, Total knee replacement status Instructions: ED Atrial Flutter Prescriptions: New metoprolol tartrate 25 mg tablet 25 mg PO BID 30 Days Qty: 60 0RF Primary Care Provider: John Rios Referrals: Delbert Noel MD [Med Staff - Active Staff] - John Rios MD [Primary Care Provider] - Activity Restrictions/Additional Instructions: Please begin taking the metoprolol twice a day to control heart rate and take a baby aspirin once a day for anticoagulation. Follow-up with your general service technician and return to the ER should you have any further concerns or worsening of symptoms Print Language: Danish Disposition Disposition: Home, Self Care Discharge Date/Time: 03/22/24 01:32
[2024-03-22 01:00] VITALS: BP 117/72; PULSE 70; RESP 17; O2SAT 98
[2024-03-22 01:29] VITALS: BP 117/62; PULSE 62; RESP 16; TEMP 37; O2SAT 99
[2024-03-22] MEDS: Aspirin 325 MG Tablet PO (01:29)
== END 2024-03-22 01:32 | disposition home or self-care (01) ==
PROVIDERS: Emergency Provider Emergency Medicine; PCP Internal Medicine; Visit Provider Emergency Medicine
DX: I48.92 Unspecified atrial flutter (principal); Z96.659 Presence of unspecified artificial knee joint
CPT/HCPCS: 80048; 83735; 84443; 85025; 85610; 85730; 93005; 96361; 96374; 99283; J7030; A4216

== ENCOUNTER → 2024-04-09 | Outpatient (CLI) | payer BC, SELFPAY ==
--- NOTE | 2024-04-09 17:22 | STRESSREP ---
Stress Test Report Exercise myocardial perfusion stress test. 58-year-old man with a history of paroxysmal atrial fibrillation on flecainide Stress protocol: Resting EKG demonstrates normal sinus rhythm with a rate of 57 bpm resting blood pressure is 108/78 mmHg. The patient exercised according to the regular Rupesh protocol for a total duration of 10 minutes and 45 seconds attaining a maximum heart rate of 146 bpm which was 89% of maximum predicted heart rate; the maximum workload was 13.4 metabolic equivalents. At rest there were no ST or T wave changes noted to suggest ischemia and at peak exercise upsloping ST changes only were noted which did not meet the criteria for ischemia. No clinical angina was noted the test was terminated due to the target heart rate being achieved/fatigue. The peak blood pressure was 180/80 mmHg. Rate-pressure product was 23,200. Myocardial perfusion protocol. 14.3 mCi of technetium 99m sestamibi was injected at rest. The patient exercised according to regular Rupesh protocol for total duration of 10 minutes and 45 seconds and at peak exercise 44.4 mCi of technetium 99m sestamibi was injected stress images were obtained stress and rest images were reconstructed in comparing the short axis vertical long and horizontal long axis. Gated images were also obtained. Perfusion SPECT analysis: Review of the stress images demonstrate normal uptake of tracer noted in all areas of the myocardium. The resting images similarly demonstrate normal uptake of tracer noted in all areas of the myocardium. No areas of reversibility are noted to suggest ischemia no previous infarct was noted. Gated SPECT analysis: The gated ejection fraction is 67%. Conclusion: Normal exercise myocardial perfusion stress test at a high workload Preserved ejection fraction.
== END | disposition home or self-care (01) ==
LOC: CVS 05:59
PROVIDERS: PCP Internal Medicine; Referring Provider Nurse Practitioner Family; Visit Provider Nurse Practitioner Family
DX: I48.92 Unspecified atrial flutter (principal); R07.9 Chest pain, unspecified; E66.9 Obesity, unspecified; Z96.653 Presence of artificial knee joint, bilateral
CPT/HCPCS: 78452; 93017; A9500; A4216

== ENCOUNTER → 2024-06-23 | Outpatient (CLI) | payer BC, SELFPAY | END | disposition home or self-care (01) | LOC: PSN 06:54 | PROVIDERS: PCP Internal Medicine; Referring Provider Nurse Practitioner Family; Visit Provider Nurse Practitioner Family | DX: I48.0 Paroxysmal atrial fibrillation (principal) | CPT/HCPCS: 93225; 93226 ==